=== PATIENT | female | born 1990 | race Hispanic/Latino ===

== ENCOUNTER 2018-01-08 23:26 | Inpatient (IN) | payer MEDICAID ==
[2018-01-08] MEDS: NOREPINEPHRINE BIT/0.9 % NACL 4 MG/250 ML BAG IV PRN (23:52)
[2018-01-08] MEDS ORDERED: NOREPINEPHRINE BIT/0.9 % NACL 4 MG/250 ML BAG IV ONE (23:52)
[2018-01-09 00:07] LABS: BASO # 0.08 K/mm3 (0.0-2.0); BASO % 0.2 % (0.0-3.0); EOS # 0.1 (0.0-0.7); EOS % 0.4 % (1.5-5.0); GRAN # 18.02 (1.4-6.5); GRAN % 49.9 % (50.0-68.0); HEMOGLOBIN 12.2 g/dL (12.0-16.0); LYMPH # 16.7 (1.2-3.4); LYMPH % 46.2 % (22.0-35.0); MEAN CELL VOLUME 91.9 fl (80.0-105.0); MEAN CORPUSCULAR HEMOGLOBIN 28.2 pg (25.0-35.0); MEAN CORPUSCULAR HGB CONC 30.7 g/dl (31.0-37.0); MEAN PLATELET VOLUME 10.7 fl (7.0-11.0); MONO # 1.2 (0.1-0.6); MONO % 3.3 % (1.0-6.0); RBC 4.33 10^6/uL (3.5-6.1); RED CELL DISTRIBUTION WIDTH 13.9 % (11.5-14.5)
[2018-01-09 00:13] LABS: WHITE BLOOD COUNT 36.1 10^3/ul (4.5-11.0)
[2018-01-09] MEDS ORDERED: Sodium Chloride 0.9% 2,000 ML IV SCH (00:15)
[2018-01-09 00:20] LABS: INR 0.97 (0.93-1.08); PROTHROMBIN TIME 11.1 SECONDS (9.4-12.5)
[2018-01-09 00:21] LABS: ARTERIAL BLOOD GAS O2 SAT 100.3 % (95-98); ARTERIAL BLOOD GAS PCO2 35 mm/Hg (35-45); ARTERIAL BLOOD GAS TCO2 9.9 mmol.L (22-28)
[2018-01-09 00:21] LABS: PARTIAL THROMBOPLASTIN TIME 65.7 Seconds (25.1-36.5)
[2018-01-09 00:22] LABS: ARTERIAL BLOOD GAS HCO3 8.8 mmol/L (21-28); ARTERIAL BLOOD GAS PH 7.01 (7.35-7.45)
--- NOTE | 2018-01-09 00:40 | CP.PCM.HP ---
<Kj Galvez - Last Filed: 01/09/18 06:33> History of Present Illness - History of Present Illness History of Present Illness: H&P Note - Carlos Galvez PGY2 HPI: Patient is a 28yo female with unknown past medical history that presented with report of cardiac arrest in the field. Per nursing, patient had been found in the back of a truck by EMS unresponsive. She was noted to be in asystole and ACLS protocol was initiated. She was intubated in the field, given a total of 3 doses of epinephrine and 2mg of narcan. ROSC was achieved and patient was urgently brought to [facility] for further evaluation. Patient reportedly had overdosed on heroin. 12point ROS limited due to patient status. PMH: unknown PSH: unknown Allergies: unobtainable Family Hx: unknown Social Hx: reportedly used heroin otherwise unknown Present on Admission - Present on Admission Any Indicators Present on Admission: No Past Patient History - Infectious Disease Hx of Infectious Diseases: None - Past Social History Smoking Status: Unknown If Ever Smoked - PSYCHIATRIC Hx Substance Use: Yes Meds Allergies/Adverse Reactions: Allergies Allergy/AdvReac Type Severity Reaction Status Date / Time Unobtainable Allergy Verified 01/08/18 23:36 Physical Exam - Constitutional Appears: In Acute Distress - Head Exam Head Exam: ATRAUMATIC, NORMOCEPHALIC - Respiratory Exam Respiratory Exam: Clear to Auscultation Bilateral. absent: Rales, Rhonchi, Wheezes - Cardiovascular Exam Cardiovascular Exam: Irregular Rhythm, +S1, +S2. absent: Gallop, Rubs - GI/Abdominal Exam GI & Abdominal Exam: Soft. absent: Distended, Firm, Rebound, Tenderness - Neurological Exam Additional comments: intubated, unresponsive on no sedation - Skin Skin Exam: Dry, Intact, Normal Color, Warm Results - Labs Result Diagrams: 01/09/18 02:45 01/09/18 02:45 Labs: Laboratory Results - last 24 hr 01/08/18 01/08/18 01/09/18 23:38 23:55 00:15 WBC 36.1 H* RBC 4.33 Hgb 12.2 Hct 39.8 MCV 91.9 MCH 28.2 MCHC 30.7 L RDW 13.9 Plt Count 274 MPV 10.7 Gran % 49.9 L Lymph % (Auto) 46.2 H [place] % (Auto) 3.3 Eos % (Auto) 0.4 L Baso % (Auto) 0.2 Gran # 18.02 H Lymph # (Auto) 16.7 H [place] # (Auto) 1.2 H Eos # (Auto) 0.1 Baso # (Auto) 0.08 PT 11.1 INR 0.97 APTT 65.7 H pCO2 35 pO2 490.0 H HCO3 8.8 L* ABG pH 7.01 L* ABG Total CO2 9.9 L ABG O2 Saturation 100.3 H ABG Base Excess -21.5 L ABG Potassium 6.1 H Sodium 137.0 Chloride 111.0 H Glucose 329 H Lactate 9.8 H* FiO2 100.0 Arterial Blood Potassium 6.1 H Assessment & Plan - Assessment and Plan (Free Text) Plan: 28yo female with unknown past medical history presents s/p cardiac arrest with ROSC achieved in the field reportedly post heroin overdose 1. Cardiac arrest -Hypothermia protocol initiated -IVF bolus for total of 3L -Started on 1/2NS with 75meq of bicarb @ 150cc/hr -Patient started on levophed with goal MAP > 65 -intubated on PRVC -ABG, EKG and CXR reviewed -Sepsis workup: blood, urine cultures pending, procalcitonin pending -Started on meropenem and vancomycin -Echocardiogram pending -Cardiology consulted - Dr. Foster -GI/DVT prophylaxis -CT Head pending -Neurochecks -Seizure precautions -HOB > 45 Patient seen and case discussed/reviewed with attending, Dr. Rhodes <Meagan ARECHIGA,Jose A - Last Filed: 01/09/18 07:39> Results - Vital Signs Recent Vital Signs: Last Vital Signs Temp 93.4 F L 01/09/18 01:10 Pulse 82 01/09/18 04:00 Resp 16 01/09/18 01:41 BP 97/55 L 01/09/18 04:00 Pulse Ox 97 01/09/18 05:02 - Labs Result Diagrams: 01/09/18 02:45 01/09/18 02:45 Labs: Laboratory Results - last 24 hr 01/09/18 01/09/18 01/09/18 00:15 00:15 00:15 WBC RBC Hgb Hct MCV MCH MCHC RDW Plt Count MPV Gran % Lymph % (Auto) [place] % (Auto) Eos % (Auto) Baso % (Auto) Gran # Lymph # (Auto) [place] # (Auto) Eos # (Auto) Baso # (Auto) pCO2 35 pO2 490.0 H HCO3 8.8 L* ABG pH 7.01 L* ABG Total CO2 9.9 L ABG O2 Saturation 100.3 H ABG Base Excess -21.5 L ABG Potassium 6.1 H VBG pH VBG pCO2 VBG HCO3 VBG Total CO2 VBG O2 Sat (Calc) VBG Base Excess VBG Potassium Sodium 137.0 Chloride 111.0 H Glucose 329 H Lactate 9.8 H* FiO2 100.0 Potassium Carbon Dioxide Anion Gap BUN Creatinine Est GFR ( Amer) Est GFR (Non-Af Amer) Random Glucose Calcium Total Bilirubin AST ALT Alkaline Phosphatase Troponin I Total Protein Albumin Globulin Albumin/Globulin Ratio Arterial Blood Potassium 6.1 H Venous Blood Potassium Urine Color Yellow Urine Appearance Clear Urine pH 6.0 Ur Specific [place] 1.020 Urine Protein Negative Urine Glucose (UA) Negative Urine Ketones Negative Urine Blood Trace-intact H Urine Nitrate Negative Urine Bilirubin Negative Urine Urobilinogen 0.2 Ur Leukocyte Esterase Negative Urine RBC 1 - 3 Urine WBC 0 - 2 Ur Epithelial Cells 1 - 3 Urine Bacteria Few Urine HCG, Qual Negative Urine Opiates Screen Positive H Urine Methadone Screen Negative Ur Barbiturates Screen Negative Ur Phencyclidine Scrn Negative Ur Amphetamines Screen Negative U Benzodiazepines Scrn Negative U Oth Cocaine Metabols Positive H U Cannabinoids Screen Positive H 01/09/18 01/09/18 01/09/18 02:45 02:45 02:45 WBC 17.4 H D RBC 5.00 Hgb 14.4 D Hct 43.5 MCV 87.0 D MCH 28.8 MCHC 33.1 RDW 13.9 Plt Count 280 MPV 10.2 Gran % 70.6 H Lymph % (Auto) 26.2 [place] % (Auto) 2.9 Eos % (Auto) 0.1 L Baso % (Auto) 0.2 Gran # 12.29 H Lymph # (Auto) 4.6 H [place] # (Auto) 0.5 Eos # (Auto) 0.0 Baso # (Auto) 0.03 pCO2 pO2 168 H HCO3 ABG pH ABG Total CO2 ABG O2 Saturation ABG Base Excess ABG Potassium VBG pH 7.16 L* VBG pCO2 43.0 VBG HCO3 15.3 L VBG Total CO2 16.6 L VBG O2 Sat (Calc) 100.3 H VBG Base Excess -13.0 L VBG Potassium 5.3 H Sodium 148 139.0 Chloride 116 H 110.0 H Glucose 82 Lactate 4.3 H* FiO2 21.0 Potassium 5.5 H Carbon Dioxide 16 L Anion Gap 22 H BUN 18 Creatinine 1.6 H Est GFR ( Amer) 46 Est GFR (Non-Af Amer) 38 Random Glucose 83 Calcium 7.3 L Total Bilirubin 0.4 AST 1923 H ALT 1419 H Alkaline Phosphatase 176 H D Troponin I 1.24 H* D Total Protein 7.1 Albumin 3.9 Globulin 3.2 Albumin/Globulin Ratio 1.2 Arterial Blood Potassium Venous Blood Potassium 5.3 H Urine Color Urine Appearance Urine pH Ur Specific [place] Urine Protein Urine Glucose (UA) Urine Ketones Urine Blood Urine Nitrate Urine Bilirubin Urine Urobilinogen Ur Leukocyte Esterase Urine RBC Urine WBC Ur Epithelial Cells Urine Bacteria Urine HCG, Qual Urine Opiates Screen Urine Methadone Screen Ur Barbiturates Screen Ur Phencyclidine Scrn Ur Amphetamines Screen U Benzodiazepines Scrn U Oth Cocaine Metabols U Cannabinoids Screen Attending/Attestation - Attestation I have personally seen and examined this patient.: Yes I have fully participated in the care of the patient.: Yes I have reviewed all pertinent clinical information: Yes Notes (Text): -I agree with the above H&P completed by the resident physician with the following additions and/or changes: -The patient is a 28 year old woman with unknown past medical history who was found at home to be unresponsive and in asystole by EMS. After ACLS protocol with chest compressions and Epi as well as Narcan, she regained pulses in the field. However, since ROSC, shes remained unresponsive and therefore was started on hypothermia protocol overnight. Its unclear how long she was down for. History is very limited as there are no family or friends with patient at this time. CT-head shows diffuse cerebral edema. Admission labs slowly returned through the night and were significant for the following: cocaine and opiate positive, WBC=36, K=6.1, and lactic acid=9.8. This morning she started having large volumes of foul-smelling diarrhea and therefore stool C. Diff antigen was ordered. As more labs have returned and given her profuse diarrhea, there was increasing concern for septic shock and therefore hypothermia protocol will be stopped. Empiric IV antibiotics, ID, neurology and cardiology consults have been placed. Procalcitonin, serial trops and EKGs ordered and Kaylexalate given. Right IJ TLC placement was attempted (twice) by me this morning (as patient is requiring Levophed drip) but was unsuccessful due to guidewire kinking. Therefore, I will have daytime diesel instructor place it later this morning. The patients prognosis is very poor. Impression: 1. Cardiac Arrest (s/p ROCS after ACLS protocol) 2. Cocaine and Opiate Overdose 3. Septic Shock (possibly due to C. Diff) 4. Diffuse Cerebral Edema (likely due to anoxic brain injury from cardiac arrest ) 5. Shock Liver 6. MARY 7. Hyperkalemia Critical Care Time Spent: 90-120 minutes 01/09/18 07:39
[2018-01-09 00:45] LABS: URINE BILIRUBIN NEGATIVE (NEGATIVE); URINE BLOOD TRACE-INTACT (NEGATIVE); URINE GLUCOSE (UA) NEGATIVE (NEGATIVE); URINE LEUKOCYTE ESTERASE NEGATIVE Leu/uL (NEGATIVE); URINE PROTEIN NEGATIVE mg/dL (<30 mg/dL); URINE UROBILINOGEN 0.2 E.U./dL (<1 E.U./dL)
[2018-01-09] MEDS ORDERED: Sodium Chloride 0.9% 1,000 ML IV SCH (00:45)
[2018-01-09] MEDS ORDERED: Meropenem 500 MG in Sodium Chloride 0.9% 50 ML IVPB SCH (00:45)
[2018-01-09 00:48] LABS: HCG,QUALITATIVE URINE NEGATIVE (NEGATIVE)
[2018-01-09] MEDS ORDERED: Vancomycin 1gm in NS 250ml 1 GM/250 ML BAG IVPB SCH ×2 (00:50→10:00)
[2018-01-09 00:51] LABS: URINE APPEARANCE CLEAR (CLEAR); URINE COLOR YELLOW (YELLOW)
[2018-01-09 00:57] LABS: TROPONIN I 0.05 ng/mL
[2018-01-09 01:05] LABS: ALB/GLOB RATIO 1.3 (1.1-1.8); ALBUMIN 3.6 g/dL (3.0-4.8); CALCIUM 8.6 mg/dL (8.4-10.5)
[2018-01-09 01:09] LABS: BARBITURATES, UR NEGATIVE (NEGATIVE); BENZODIAZEPINES, UR NEGATIVE (NEGATIVE); OPIATES, UR POSITIVE (NEGATIVE); PHENCYCLIDINE, UR NEGATIVE (NEGATIVE)
[2018-01-09 01:13] LABS: URINE WBC 0 - 2 /hpf (0-6)
[2018-01-09 01:14] LABS: URINE BACTERIA FEW (NEG)
[2018-01-09] MEDS ORDERED: Sod Polystyrene Sulf 15 gm/60 ml Susp PO ONE (01:16)
[2018-01-09] MEDS ORDERED: Insulin Lispro 1 UNITS/0.01 ML SC ONE (01:16)
--- NOTE | 2018-01-09 01:17 | CT ---
EXAM: CT Head Without Intravenous Contrast EXAM DATE/TIME: 01/08/2018 11:58 PM CLINICAL HISTORY: 28 years old, female; Signs and symptoms; Coma or unconsciousness; Additional info: Post cardiac arrest TECHNIQUE: Axial computed tomography images of the head/brain without intravenous contrast. All CT scans at this facility use one or more dose reduction techniques, viz.: automated exposure control; ma/kV adjustment per patient size (including targeted exams where dose is matched to indication; i.e. head); or iterative reconstruction technique. COMPARISON: No relevant prior studies available. FINDINGS: Endotracheal tube on bonding machine setter view. There is diffuse loss of colin-white matter differentiation. The brain parenchyma is overall decreased in attenuation. This combination of findings supports diffuse cerebral edema. The sulci are poorly visualized presumably secondary to effacement from edematous cerebral tissue. The ventricles and cisterns are patent although felt to be compressed. The tentorium and falx appear slightly hyperdense felt to be in contrast to the abnormally hypodense brain parenchyma. No intracranial hemorrhage. No significant fluid in the sinuses or mastoid air cells. IMPRESSION: Loss of colin-white matter differentiation with diffuse decreased attenuation of the brain parenchyma. Findings supportive of diffuse cerebral edema presumably secondary to the patient's reported cardiac arrest.
[2018-01-09] MEDS ORDERED: Insulin Regular 1 UNITS/0.01 ML ML IV ONE (01:47)
[2018-01-09 03:58] LABS: VENOUS BLOOD GAS PO2 168 mm/Hg (30-55)
[2018-01-09 04:02] LABS: VENOUS BLOOD PH 7.16 (7.32-7.43)
[2018-01-09 04:05] LABS: BASO # 0.03 K/mm3 (0.0-2.0); BASO % 0.2 % (0.0-3.0); EOS % 0.1 % (1.5-5.0); GRAN # 12.29 (1.4-6.5); GRAN % 70.6 % (50.0-68.0); HEMOGLOBIN 14.4 g/dL (12.0-16.0); LYMPH # 4.6 (1.2-3.4); LYMPH % 26.2 % (22.0-35.0); MEAN CORPUSCULAR HEMOGLOBIN 28.8 pg (25.0-35.0); MEAN CORPUSCULAR HGB CONC 33.1 g/dl (31.0-37.0); MEAN PLATELET VOLUME 10.2 fl (7.0-11.0); MONO # 0.5 (0.1-0.6); MONO % 2.9 % (1.0-6.0); RED CELL DISTRIBUTION WIDTH 13.9 % (11.5-14.5); WHITE BLOOD COUNT 17.4 10^3/ul (4.5-11.0)
[2018-01-09] MEDS ORDERED: Dextrose 50% SYRINGE Inj (50 ml) ONE ×2 (04:43→08:02)
[2018-01-09] MEDS ORDERED: Dextrose 50% SYRINGE Inj (50 ml) IVP ONE ×2 (04:45→08:02)
[2018-01-09 04:50] LABS: ALB/GLOB RATIO 1.2 (1.1-1.8); ALBUMIN 3.9 g/dL (3.0-4.8); CALCIUM 7.3 mg/dL (8.4-10.5); TROPONIN I 1.24 ng/mL
[2018-01-09 05:44] VITALS: BMI 23.9
[2018-01-09] MEDS ORDERED: Pneumococcal 23-Valent Vaccine IM ONE (05:44)
--- NOTE | 2018-01-09 05:46 | ED PDOC ---
Arrival/HPI - General Chief Complaint: Cardiac Arrest Time Seen by Provider: 01/08/18 23:33 Historian: Patient - Critical Care Critical Care Minutes: 60 minutes - History of Present Illness Narrative History of Present Illness (Text): 01/09/18 05:43 28 year old female, with no significant past medical history, presents to the ed brought in by ALS s/p cardiac rest. Patient was found unresponsive. Initial recorded cardiac rhythm was Asystole. ACLS protocol was started Epinephrin and Narcan were administered. ROSC upon arrival. Full HPI limited due to Patient's status. Time/Duration: Prior to Arrival Symptom Onset: Sudden Symptom Course: Unchanged Activities at Onset: Light Context: Home Past Medical History - Provider Review Nursing Documentation Reviewed: Yes - Infectious Disease Hx of Infectious Diseases: None - Cardiac Hx Cardiac Disorders: Yes (s/p cardiac arrest 01/08/18.) - Pulmonary Hx Respiratory Disorders: (Unknown) - Neurological Hx Neurological Disorder: (Unknown) - HEENT Hx HEENT Disorder: (Unknown) - Renal Hx Renal Disorder: (Unknown) - Endocrine/Metabolic Hx Endocrine Disorders: (Unknown) - Hematological/Oncological Hx Blood Disorders: (Unknown) - Integumentary Hx Dermatological Disorder: (Unknown) - Musculoskeletal/Rheumatological Hx Musculoskeletal Disorders: (Unknown) - Gastrointestinal Hx Gastrointestinal Disorders: (Unknown) - Genitourinary/Gynecological Hx Genitourinary Disorders: (Unknown) - Psychiatric Hx Psychophysiologic Disorder: Yes (s/p cardiac arrest; drug abuse (heroin). .) Hx Substance Use: Yes Family/Social History - Physician Review Nursing Documentation Reviewed: Yes Family/Social History: Unknown Family HX Smoking Status: Unknown If Ever Smoked Hx Alcohol Use: No Hx Substance Use: Yes Substance used: heroin Allergies/Home Meds Allergies/Adverse Reactions: Allergies Unobtainable Allergy (Verified 01/08/18 23:36) Home Medications: Home Meds Medication Instructions Recorded Confirmed Unobtainable 01/08/18 01/08/18 Review of Systems - Review of Systems Systems not reviewed;Unavailable: Acuity of Condition Physical Exam Vital Signs Reviewed: Yes Vital Signs Temp Pulse Resp BP Pulse Ox 01/09/18 00:03 56 L 18 95/42 L 100 01/08/18 23:53 97.1 F L 58 L 29 H 88/34 L 96 Temperature: Hypothermic Blood Pressure: Hypotensive Pulse: Irregular Respiratory Rate: Tachypneic Appearance: Positive for: Well-Appearing, Non-Toxic, Comfortable Pain Distress: None Mental Status: Positive for: Alert and Oriented X 3 Finger Stick Blood Glucose: 41 - Systems Exam Head: Present: Atraumatic, Normocephalic Pupils: Present: PERRL Extroacular Muscles: Present: EOMI Conjunctiva: Present: Normal Mouth: Present: Moist Mucous Membranes Neck: Present: Normal Range of Motion Respiratory/Chest: Present: Other (Mechanical Ventilation). No: Respiratory Distress, Accessory Muscle Use Cardiovascular: Present: Normal S1, S2, Irregular Rhythm. No: Murmurs Abdomen: No: Tenderness, Distention, Peritoneal Signs Back: Present: Normal Inspection Upper Extremity: Present: Normal Inspection. No: Cyanosis, Edema Lower Extremity: Present: Normal Inspection. No: Edema Neurological: Present: GCS=15, CN II-XII Intact, Speech Normal Skin: Present: Warm, Dry, Normal Color. No: Rashes Psychiatric: Present: Alert, Oriented x 3, Normal Insight, Normal Concentration Medical Decision Making ED Course and Treatment: 01/09/18 05:48 Impression: 28 year old female brought in by ALS s/p cardiac arrest Plan: -- Arterial Blood Gas -- EKG -- Labs -- Phosphorous -- Magnesium -- Echo -- CXR -- Blood Culture -- Urine Culture -- Ventilator -- Sodium Chloride -- Dextrose -- Insulin -- Norepinephrin -- Vancomycin Progress Notes: EKG reviewed, shows irregular rate at 67 bpm. - Critical Care Critical Care Minutes: 60 minutes - Lab Interpretations Lab Results: 01/08/18 23:38 01/08/18 23:55 Lab Results 01/08/18 23:55: Alcohol, Quantitative < 10 01/08/18 23:55: Sodium 143, Potassium 6.1 H*, Chloride 105, Carbon Dioxide 13 L , Anion Gap 31 H, BUN 14, Creatinine 1.4 H, Est GFR ( Amer) 54, Est GFR ( Non-Af Amer) 44, Random Glucose 389 H*, Calcium 8.6, Magnesium 2.7 H, Total Bilirubin 0.2, AST 959 H, ALT 740 H, Alkaline Phosphatase 103, Lactate Dehydrogenase 4252 H, Total Creatine Kinase 74, Troponin I 0.05, Total Protein 6.5, Albumin 3.6, Globulin 2.9, Albumin/Globulin Ratio 1.3 01/08/18 23:55: PT 11.1, INR 0.97, APTT 65.7 H 01/08/18 23:38: WBC 36.1 H*, RBC 4.33, Hgb 12.2, Hct 39.8, MCV 91.9, MCH 28.2, MCHC 30.7 L, RDW 13.9, Plt Count 274, MPV 10.7, Gran % 49.9 L, Lymph % (Auto) 46.2 H, [place] % (Auto) 3.3, Eos % (Auto) 0.4 L, Baso % (Auto) 0.2, Gran # 18.02 H , Lymph # (Auto) 16.7 H, [place] # (Auto) 1.2 H, Eos # (Auto) 0.1, Baso # (Auto) 0.08 - RAD Interpretation Radiology Orders: 01/08/18 23:39 CHEST PORTABLE [RAD] Stat 01/08/18 23:58 HEAD W/O CONTRAST [CT] Stat - Medication Orders Current Medication Orders: NOREPINEPHRINE BIT/0.9 % NACL (Levophed 4 Mg/ 250 Ml Ns Premixed) 4 mg in 250 mls @ 15 mls/hr IV .[id number] PRN; Protocol; 4 MCG/MIN PRN Reason: TITRATE PER MD ORDER Last Titration: 01/09/18 05:30 Dose: 16 mcg/min, 60 mls/hr Titration Intervention Document 01/09/18 05:30 QES (Rec: 01/09/18 05:47 QES [id number]) Titration Intake Titration Intake 50 Cumulative Intake 174 Cumulative Intake (Rx) 174 Waste Amount 0 Container Volume 34 Titration Dosing Titration Dose 16 IV Rate 60 Intake/Decrease Increased Cumulative Dose 3.024 Sodium Chloride (Sodium Chloride 0.9%) 2,000 mls @ 999 mls/hr IV .Q2H1M SASCHA Last Admin: 01/09/18 00:14 Dose: 999 mls/hr eMAR Start Stop Document 01/09/18 00:14 LA (Rec: 01/09/18 00:15 LA [id number]) Intravenous Solution Start Date 01/09/18 Start Time 00:14 Sodium Chloride (Sodium Chloride 0.9%) 1,000 mls @ 999 mls/hr IV .Q1H1M SASCHA Vancomycin HCl (Vancomycin 1gm) 1 gm in 250 mls @ 167 mls/hr IVPB DAILY SASCHA PRN Reason: Protocol Sodium Bicarbonate 75 meq/ (Sodium Chloride) 1,075 mls @ 150 mls/hr IV .Q7H10M SASCHA Last Admin: 01/09/18 01:57 Dose: 150 mls/hr eMAR Start Stop Document 01/09/18 01:57 QES (Rec: 01/09/18 01:58 QES [id number]) Intravenous Solution Start Date 01/09/18 Start Time 01:57 Pantoprazole Sodium (Protonix Inj) 40 mg IVP DAILY SASCHA Discontinued Medications Dextrose (Dextrose 50% Inj) 50 ml IVP ONCE ONE Stop: 01/09/18 04:46 Last Admin: 01/09/18 04:47 Dose: 50 ml IVP Administration Document 01/09/18 04:47 QES (Rec: 01/09/18 04:54 QES [id number]) Charges for Administration # of IVP Administrations 1 Meropenem 500 mg/ Sodium (Chloride) 50 mls @ 100 mls/hr IVPB Q24H SASCHA PRN Reason: Protocol Stop: 01/09/18 01:14 Last Admin: 01/09/18 03:32 Dose: 100 mls/hr eMAR Start Stop Document 01/09/18 03:32 QES (Rec: 01/09/18 03:32 QES [id number]) Intravenous Solution Start Date 01/09/18 Start Time 03:32 End Date 01/09/18 End time 04:02 Total Infusion Time 30 Vancomycin HCl (Vancomycin 1gm) 1 gm in 250 mls @ 167 mls/hr IVPB DAILY SASCHA PRN Reason: Protocol Insulin Human Regular (Humulin R) 10 units IV ONCE ONE Stop: 01/09/18 01:48 Last Admin: 01/09/18 01:57 Dose: 10 units Comments: Glucose from chemistry is 389. eMAR Start Stop Document 01/09/18 01:57 QES (Rec: 01/09/18 01:57 QES [id number]) Intravenous Solution Start Date 01/09/18 Start Time 01:57 End Date 01/09/18 End time 01:58 Total Infusion Time 1 Pneumococcal Polyvalent Vaccine (Pneumovax 23 Vaccine) 0.5 ml IM .ONCE ONE Stop: 01/09/18 05:45 Sodium Polystyrene Sulfonate (Kayexalate Susp) 30 gm PO ONCE ONE Stop: 01/09/18 01:17 Last Admin: 01/09/18 01:52 Dose: 30 gm - Scribe Statement The provider has reviewed the documentation as recorded by the Terranceibbrett Rivas All medical record entries made by the Maxine were at my direction and personally dictated by me. I have reviewed the chart and agree that the record accurately reflects my personal performance of the history, physical exam, medical decision making, and the department course for this patient. I have also personally directed, reviewed, and agree with the discharge instructions and disposition. Disposition/Present on Arrival - Present on Arrival Any Indicators Present on Arrival: No History of DVT/PE: No History of Uncontrolled Diabetes: No Urinary Catheter: No History of Decub. Ulcer: No History Surgical Site Infection Following: None - Disposition Have Diagnosis and Disposition been Completed?: Yes Diagnosis: Cardiac arrest, Drug abuse Disposition: HOSPITALIZED Disposition Time: 23:40 Condition: CRITICAL
[2018-01-09] MEDS ORDERED: Sodium Chloride 0.9% 1,000 ML IV STA (06:50)
[2018-01-09 08:11] LABS: ACETAMINOPHEN < 10.0 ug/ml (10.0-20.0); SALICYLATE < 1 mg/dL (2.0-20.0)
[2018-01-09 08:17] LABS: B-TYPE NATRIURETIC PEPTIDE 97.3 pg/mL (0-450)
[2018-01-09] MEDS ORDERED: WATER IV ONE ×3 (08:30→14:30)
[2018-01-09] MEDS ORDERED: DEXTROSE 5% IV ONE ×3 (08:30→14:30)
[2018-01-09] MEDS ORDERED: ACETYLCYSTEINE IV ONE ×3 (08:30→14:30)
[2018-01-09] MEDS: Vasopressin 20 UNITS in Dextrose 5% In Water 100 ML IV SCH ×3 (08:53→19:09)
[2018-01-09] MEDS: NOREPINEPHRINE BIT/0.9 % NACL 4 MG/250 ML BAG IV PRN (09:10)
--- NOTE | 2018-01-09 09:29 | PCM.PROC ---
<Michael Vaughan - Last Filed: 01/09/18 09:26> Procedures Attestation:: I certify that I have explained the specified Operation(s) or Procedure(s), risks, benefits and reasonable alternatives to the Patient and/or other person responsible. The opportunity was given to ask questions and all questions answered - Central Line Placement Right Femoral Triple Lumen Catheter Aseptic technique was employed throughout the procedure: Hand Hygiene done prior to procedure, Full sterile barriers (mask, hair cover, sterile gown, sterile gloves), Full body sterile drape, Chloraprep Antiseptic: 2 minute prep for Femoral CVP Time Out Performed: Yes Pt. Placed on Pulse Ox Monitor: Yes Central Line Prep: Chlorhexidine-Alcohol Combination Local Anesthesia Used: Lidocaine 1% Amount of Anesthesia Used (mls): 3 Ultrasound Used for Placement: Yes Central Line Lumen Inserted: triple Central Line Length: 20 cm Post Procedure: Sutured in Place, Good Blood Return, All Ports Aspirated, Flushed, Capped, Sterile Dressing Applied Secured by: Suture Post procedure dressing: Clear vapor permeable, Chlorhexidine disc (Biopatch) Post Procedure X-Ray: No Patient Tolerated Procedure: Well, No Complications Immediate Complications: None Additional Comments: Ultrasound-guided TLC catheter placed in right femoral vein under the supervision of attending, Dr. Brendan MD. <Eduardo Cardona - Last Filed: 01/09/18 14:28> Attending/Attestation - Attestation I have personally seen and examined this patient.: Yes I have fully participated in the care of the patient.: Yes I have reviewed all pertinent clinical information, including history, physical exam and plan: Yes Notes (Text): 01/09/18 14:26 Emergent procedure-->need for multiple vasoactive meds and IV access. Maximum barrier precautions used, operational area sterilzed and TO performed. real time US guidance+, guidewire removed, sterile dressings applied, hemostasis acheived.
[2018-01-09] MEDS: Cefepime 1gm in NS 100ml 1 GM/100 ML BAG IVPB SCH ×2 (09:36→15:47)
--- NOTE | 2018-01-09 10:08 | RAD ---
HISTORY: post intubation COMPARISON: No prior. FINDINGS: LUNGS: No active pulmonary disease. PLEURA: No significant pleural effusion identified, no pneumothorax apparent. CARDIOVASCULAR: No radiographic findings to suggest acute or significant cardiovascular disease. OSSEOUS STRUCTURES: No significant abnormalities. VISUALIZED UPPER ABDOMEN: Markedly distended stomach. No visible free air OTHER FINDINGS: Satisfactory position of endotracheal tube 4 cm above the dominguez. IMPRESSION: No active disease. Recently placed endotracheal tube is in satisfactory position.
[2018-01-09] MEDS ORDERED: Pantoprazole 40mg/100mL NS 40 MG/100 ML BAG IVPB SCH (10:15)
[2018-01-09] MEDS: Sodium Bicarbonate 8.4% 150 MEQ in Dextrose 5% In Water 1,000 ML IV SCH ×2 (10:34→17:48)
--- NOTE | 2018-01-09 10:42 | RAD ---
HISTORY: s/p cardiac arrest COMPARISON: January 08, 2018. FINDINGS: LUNGS: No active pulmonary disease. PLEURA: No significant pleural effusion identified, no pneumothorax apparent. CARDIOVASCULAR: No radiographic findings to suggest acute or significant cardiovascular disease. OSSEOUS STRUCTURES: No significant abnormalities. VISUALIZED UPPER ABDOMEN: Normal. OTHER FINDINGS: Stable position of endotracheal tube. Recently placed nasogastric tube identified in the stomach which is decompressed compared to the prior study. IMPRESSION: Active pulmonary disease. Satisfactory position of support apparatus.
--- NOTE | 2018-01-09 11:44 | CP.CCUPN ---
<AlexusMichael - Last Filed: 01/09/18 11:41> CCU Subjective - Physician Review Subjective (Free Text): ICU Progress Note Pt seen and examined at bedside. Patient remains intubated on pressors. Detailed ROS unobtainable due to current mental status. CCU Objective - Vital Signs / Intake & Output Vital Signs (Last 4 hours): Vital Signs Temp Pulse BP Pulse Ox 01/09/18 09:35 92.5 F L 97 H 83/52 L 97 01/09/18 09:30 92.5 F L 97 H 91/49 L 97 01/09/18 09:25 92.5 F L 100 H 81/49 L 97 01/09/18 09:20 92.5 F L 101 H 80/47 L 97 01/09/18 09:17 92.5 F L 101 H 87/50 L 97 01/09/18 09:15 92.5 F L 102 H 80/47 L 97 01/09/18 09:10 92.5 F L 101 H 73/41 L 96 01/09/18 09:05 92.3 F L 97 H 80/46 L 97 01/09/18 09:00 92.5 F L 98 H 88/50 L 97 01/09/18 08:55 92.5 F L 99 H 93/49 L 97 01/09/18 08:53 91/49 L 01/09/18 08:50 92.5 F L 99 H 91/49 L 97 01/09/18 08:45 92.5 F L 99 H 93/49 L 98 01/09/18 08:40 92.7 F L 100 H 96/50 L 97 01/09/18 08:35 92.7 F L 100 H 98/51 L 97 01/09/18 08:30 92.7 F L 102 H 100/53 L 97 01/09/18 08:25 92.8 F L 103 H 98/53 L 97 01/09/18 08:20 92.8 F L 105 H 98/49 L 97 01/09/18 08:15 93.0 F L 106 H 94/46 L 97 01/09/18 08:10 93.0 F L 107 H 93/46 L 97 01/09/18 08:05 93.0 F L 105 H 83/39 L 96 01/09/18 08:00 93.0 F L 105 H 82/45 L 95 01/09/18 07:55 93.0 F L 105 H 78/50 L 95 01/09/18 07:50 93.0 F L 105 H 88/50 L 96 01/09/18 07:45 93.0 F L 106 H 84/49 L 96 Intake and Output (Last 8hrs): Intake & Output 01/08/18 01/09/18 01/09/18 22:59 06:59 14:59 Intake Total 3898 Output Total 145 Balance 3753 Weight 63.231 kg Intake: IV 898 Left Antecubital 0 Left Hand 675 Oral 0 Tube Feeding 0 TPN/PPN 0 Blood Product 0 Lipid 0 Albumin 0 Other 3000 Output: Urine 145 Urethral (Mccall) 125 Stool 0 Urine/Stool Mix 0 Emesis 0 Oral Regurgitation 0 Other 0 Other: Voiding Method Indwelling Catheter # Voids Urethral (Mccall) 0 # Bowel Movements 2 - Physical Exam Physical Exam Limitations: Positive for: Altered Mental Status Head: Positive for: Atraumatic, Normocephalic Pupils: Positive for: Sluggish Conjunctiva: Positive for: Normal Mouth: Positive for: Moist Mucous Membranes, Other (ETT and OGT in place dark blood per OG tube) Neck: Positive for: Normal Range of Motion Respiratory/Chest: Positive for: Other (Mechanical Ventilation). Negative for: Respiratory Distress, Accessory Muscle Use Cardiovascular: Positive for: Normal S1, S2, Tachycardic. Negative for: Murmurs , Irregular Rhythm Abdomen: Negative for: Tenderness, Distention, Peritoneal Signs Back: Positive for: Normal Inspection Upper Extremity: Positive for: Normal Inspection. Negative for: Cyanosis, Edema Lower Extremity: Positive for: Normal Inspection. Negative for: Edema Skin: Positive for: Warm, Dry, Normal Color. Negative for: Rashes - Medications Active Medications: Active Medications Generic Name Dose Route Start Last Admin Trade Name Freq PRN Reason Stop Dose Admin Hydrocortisone Sodium Succinate 50 mg 01/09/18 07:45 01/09/18 09:21 Solu-Cortef IVP 50 mg Q6H SASCHA Administration NOREPINEPHRINE BIT/0.9 % NACL 4 mg in 250 mls @ 15 mls/hr 01/08/18 23:42 09:10 Levophed 4 Mg/ 250 Ml Ns Premixed IV 20 mcg/min .[id number] PRN 75 mls/hr TITRATE PER MD ORDER Administration Protocol 4 MCG/MIN Vancomycin HCl 1 gm in 250 mls @ 167 mls/hr 01/09/18 00:50 01/09/18 09:37 Vancomycin 1gm IVPB 167 mls/hr DAILY SASCHA Administration Protocol Sodium Bicarbonate 150 meq/ 1,150 mls @ 150 mls/hr 01/09/18 07:45 01/09/18 10 :34 Dextrose IV 150 mls/hr .[id number] SASCHA Administration Cefepime HCl 1 gm in 100 mls @ 100 mls/hr 01/09/18 07:45 01/09/18 09:36 Maxipime 1gm IVPB 100 mls/hr Q8H SASCHA Administration Protocol Vasopressin 20 units/ Dextrose 101 mls @ 9.09 mls/hr 01/09/18 08:00 01/09/18 08:53 IV 9.09 mls/hr .[id number] SASCHA Administration Protocol 0.03 U/MIN Acetylcysteine 3,162 mg/ 515.81 mls @ 125 mls/hr 01/09/18 10:00 01/09/18 10: 25 Dextrose IV 01/09/18 14:07 125 mls/hr .Q4H8M ONE Administration Protocol Acetylcysteine 6,323 mg/ 1,031.615 mls @ 62.5 mls/hr 01/09/18 14:30 Dextrose IV 01/10/18 07:00 .[id number] ONE Protocol Pantoprazole Sodium 40 mg in 100 mls @ 20 mls/hr 01/09/18 10:15 Protonix 40mg Ivpb IVPB .Q5H SASCHA Levetiracetam 1,000 mg/ Sodium 110 mls @ 460 mls/hr 01/09/18 11:45 Chloride IV Q12 SASCHA Sodium Chloride 500 mls @ 30 mls/hr 01/09/18 11:45 Hypertonic Saline 3% IV .[id number] SASCHA - Patient Studies Lab Studies: Lab Studies 01/09/18 01/09/18 01/09/18 Range/Units 08:00 07:00 06:06 WBC (4.5-11.0) 10^3/ul RBC (3.5-6.1) 10^6/uL Hgb (12.0-16.0) g/dL Hct (36.0-48.0) % MCV (80.0-105.0) fl MCH (25.0-35.0) pg MCHC (31.0-37.0) g/dl RDW (11.5-14.5) % Plt Count (120.0-450.0) 10^3/uL MPV (7.0-11.0) fl Gran % (50.0-68.0) % Lymph % (Auto) (22.0-35.0) % [place] % (Auto) (1.0-6.0) % Eos % (Auto) (1.5-5.0) % Baso % (Auto) (0.0-3.0) % Gran # (1.4-6.5) Lymph # (Auto) (1.2-3.4) [place] # (Auto) (0.1-0.6) Eos # (Auto) (0.0-0.7) Baso # (Auto) (0.0-2.0) K/mm3 pCO2 (35-45) mm/Hg pO2 (80-100) mm/Hg HCO3 (21-28) mmol/L ABG pH (7.35-7.45) ABG Total CO2 (22-28) mmol.L ABG O2 Saturation (95-98) % ABG Base Excess (-2.0-3.0) mmol/L ABG Potassium (3.6-5.2) mmol/L VBG pH (7.32-7.43) VBG pCO2 (40-60) VBG HCO3 (21-28) mmol/l VBG Total CO2 (22-28) mmol.L VBG O2 Sat (Calc) (40-65) % VBG Base Excess (0.0-2.0) mmol/L VBG Potassium (3.6-5.2) mmol/L Sodium (132-148) mmol/L Chloride (98-107) mmol/L Glucose (65-105) mg/dl Lactate (0.7-2.1) mmol/L FiO2 % Potassium (3.6-5.0) mmol/L Carbon Dioxide (21-33) mmol/L Anion Gap (10-20) BUN (7-21) mg/dL Creatinine (0.7-1.2) mg/dl Est GFR ( Amer) Est GFR (Non-Af Amer) POC Glucose (mg/dL) 50 L 80 (65-110) mg/dL Random Glucose (70-110) mg/dL Calcium (8.4-10.5) mg/dL Phosphorus (2.5-4.5) mg/dL Total Bilirubin (0.2-1.3) mg/dL AST (14-36) U/L ALT (7-56) U/L Alkaline Phosphatase (38-126) U/L Total Creatine Kinase (35-230) U/L Troponin I ng/mL NT-Pro-B Natriuret Pep (0-450) pg/mL Total Protein (5.8-8.3) g/dL Albumin (3.0-4.8) g/dL Globulin gm/dL Albumin/Globulin Ratio (1.1-1.8) Arterial Blood Potassium (3.6-5.2) mmol/L Venous Blood Potassium (3.6-5.2) mmol/L Urine Color (YELLOW) Urine Appearance (CLEAR) Urine pH (4.7-8.0) Ur Specific [place] (1.005-1.035) Urine Protein (<30 mg/dL) mg/dL Urine Glucose (UA) (NEGATIVE) mg/dL Urine Ketones (NEGATIVE) mg/dL Urine Blood (NEGATIVE) Urine Nitrate (NEGATIVE) Urine Bilirubin (NEGATIVE) Urine Urobilinogen (<1 E.U./dL) E.U./dL Ur Leukocyte Esterase (NEGATIVE) [place]/uL Urine RBC (0-2) /hpf Urine WBC (0-6) /hpf Ur Epithelial Cells (0-5) /hpf Urine Bacteria (NEG) Urine HCG, Qual (NEGATIVE) Salicylates < 1 L (2.0-20.0) mg/dL Urine Opiates Screen (NEGATIVE) Urine Methadone Screen (NEGATIVE) Acetaminophen < 10.0 L (10.0-20.0) ug/ml Ur Barbiturates Screen (NEGATIVE) Ur Phencyclidine Scrn (NEGATIVE) Ur Amphetamines Screen (NEGATIVE) U Benzodiazepines Scrn (NEGATIVE) U Oth Cocaine Metabols (NEGATIVE) U Cannabinoids Screen (NEGATIVE) 01/09/18 01/09/18 01/09/18 Range/Units 04:40 02:45 02:45 WBC 17.4 H D (4.5-11.0) 10^3/ul RBC 5.00 (3.5-6.1) 10^6/uL Hgb 14.4 D (12.0-16.0) g/dL Hct 43.5 (36.0-48.0) % MCV 87.0 D (80.0-105.0) fl MCH 28.8 (25.0-35.0) pg MCHC 33.1 (31.0-37.0) g/dl RDW 13.9 (11.5-14.5) % Plt Count 280 (120.0-450.0) 10^3/uL MPV 10.2 (7.0-11.0) fl Gran % 70.6 H (50.0-68.0) % Lymph % (Auto) 26.2 (22.0-35.0) % [place] % (Auto) 2.9 (1.0-6.0) % Eos % (Auto) 0.1 L (1.5-5.0) % Baso % (Auto) 0.2 (0.0-3.0) % Gran # 12.29 H (1.4-6.5) Lymph # (Auto) 4.6 H (1.2-3.4) [place] # (Auto) 0.5 (0.1-0.6) Eos # (Auto) 0.0 (0.0-0.7) Baso # (Auto) 0.03 (0.0-2.0) K/mm3 pCO2 (35-45) mm/Hg pO2 168 H (80-100) mm/Hg HCO3 (21-28) mmol/L ABG pH (7.35-7.45) ABG Total CO2 (22-28) mmol.L ABG O2 Saturation (95-98) % ABG Base Excess (-2.0-3.0) mmol/L ABG Potassium (3.6-5.2) mmol/L VBG pH 7.16 L* (7.32-7.43) VBG pCO2 43.0 (40-60) VBG HCO3 15.3 L (21-28) mmol/l VBG Total CO2 16.6 L (22-28) mmol.L VBG O2 Sat (Calc) 100.3 H (40-65) % VBG Base Excess -13.0 L (0.0-2.0) mmol/L VBG Potassium 5.3 H (3.6-5.2) mmol/L Sodium 139.0 (132-148) mmol/L Chloride 110.0 H (98-107) mmol/L Glucose 82 (65-105) mg/dl Lactate 4.3 H* (0.7-2.1) mmol/L FiO2 21.0 % Potassium (3.6-5.0) mmol/L Carbon Dioxide (21-33) mmol/L Anion Gap (10-20) BUN (7-21) mg/dL Creatinine (0.7-1.2) mg/dl Est GFR ( Amer) Est GFR (Non-Af Amer) POC Glucose (mg/dL) 41 L (65-110) mg/dL Random Glucose (70-110) mg/dL Calcium (8.4-10.5) mg/dL Phosphorus (2.5-4.5) mg/dL Total Bilirubin (0.2-1.3) mg/dL AST (14-36) U/L ALT (7-56) U/L Alkaline Phosphatase (38-126) U/L Total Creatine Kinase (35-230) U/L Troponin I ng/mL NT-Pro-B Natriuret Pep (0-450) pg/mL Total Protein (5.8-8.3) g/dL Albumin (3.0-4.8) g/dL Globulin gm/dL Albumin/Globulin Ratio (1.1-1.8) Arterial Blood Potassium (3.6-5.2) mmol/L Venous Blood Potassium 5.3 H (3.6-5.2) mmol/L Urine Color (YELLOW) Urine Appearance (CLEAR) Urine pH (4.7-8.0) Ur Specific [place] (1.005-1.035) Urine Protein (<30 mg/dL) mg/dL Urine Glucose (UA) (NEGATIVE) mg/dL Urine Ketones (NEGATIVE) mg/dL Urine Blood (NEGATIVE) Urine Nitrate (NEGATIVE) Urine Bilirubin (NEGATIVE) Urine Urobilinogen (<1 E.U./dL) E.U./dL Ur Leukocyte Esterase (NEGATIVE) [place]/uL Urine RBC (0-2) /hpf Urine WBC (0-6) /hpf Ur Epithelial Cells (0-5) /hpf Urine Bacteria (NEG) Urine HCG, Qual (NEGATIVE) Salicylates (2.0-20.0) mg/dL Urine Opiates Screen (NEGATIVE) Urine Methadone Screen (NEGATIVE) Acetaminophen (10.0-20.0) ug/ml Ur Barbiturates Screen (NEGATIVE) Ur Phencyclidine Scrn (NEGATIVE) Ur Amphetamines Screen (NEGATIVE) U Benzodiazepines Scrn (NEGATIVE) U Oth Cocaine Metabols (NEGATIVE) U Cannabinoids Screen (NEGATIVE) 01/09/18 01/09/18 01/09/18 Range/Units 02:45 00:15 00:15 WBC (4.5-11.0) 10^3/ul RBC (3.5-6.1) 10^6/uL Hgb (12.0-16.0) g/dL Hct (36.0-48.0) % MCV (80.0-105.0) fl MCH (25.0-35.0) pg MCHC (31.0-37.0) g/dl RDW (11.5-14.5) % Plt Count (120.0-450.0) 10^3/uL MPV (7.0-11.0) fl Gran % (50.0-68.0) % Lymph % (Auto) (22.0-35.0) % [place] % (Auto) (1.0-6.0) % Eos % (Auto) (1.5-5.0) % Baso % (Auto) (0.0-3.0) % Gran # (1.4-6.5) Lymph # (Auto) (1.2-3.4) [place] # (Auto) (0.1-0.6) Eos # (Auto) (0.0-0.7) Baso # (Auto) (0.0-2.0) K/mm3 pCO2 35 (35-45) mm/Hg pO2 490.0 H (80-100) mm/Hg HCO3 8.8 L* (21-28) mmol/L ABG pH 7.01 L* (7.35-7.45) ABG Total CO2 9.9 L (22-28) mmol.L ABG O2 Saturation 100.3 H (95-98) % ABG Base Excess -21.5 L (-2.0-3.0) mmol/L ABG Potassium 6.1 H (3.6-5.2) mmol/L VBG pH (7.32-7.43) VBG pCO2 (40-60) VBG HCO3 (21-28) mmol/l VBG Total CO2 (22-28) mmol.L VBG O2 Sat (Calc) (40-65) % VBG Base Excess (0.0-2.0) mmol/L VBG Potassium (3.6-5.2) mmol/L Sodium 148 137.0 (132-148) mmol/L Chloride 116 H 111.0 H (98-107) mmol/L Glucose 329 H (65-105) mg/dl Lactate 9.8 H* (0.7-2.1) mmol/L FiO2 100.0 % Potassium 5.5 H (3.6-5.0) mmol/L Carbon Dioxide 16 L (21-33) mmol/L Anion Gap 22 H (10-20) BUN 18 (7-21) mg/dL Creatinine 1.6 H (0.7-1.2) mg/dl Est GFR ( Amer) 46 Est GFR (Non-Af Amer) 38 POC Glucose (mg/dL) (65-110) mg/dL Random Glucose 83 (70-110) mg/dL Calcium 7.3 L (8.4-10.5) mg/dL Phosphorus (2.5-4.5) mg/dL Total Bilirubin 0.4 (0.2-1.3) mg/dL AST 1923 H (14-36) U/L ALT 1419 H (7-56) U/L Alkaline Phosphatase 176 H D (38-126) U/L Total Creatine Kinase (35-230) U/L Troponin I 1.24 H* D ng/mL NT-Pro-B Natriuret Pep (0-450) pg/mL Total Protein 7.1 (5.8-8.3) g/dL Albumin 3.9 (3.0-4.8) g/dL Globulin 3.2 gm/dL Albumin/Globulin Ratio 1.2 (1.1-1.8) Arterial Blood Potassium 6.1 H (3.6-5.2) mmol/L Venous Blood Potassium (3.6-5.2) mmol/L Urine Color Yellow (YELLOW) Urine Appearance Clear (CLEAR) Urine pH 6.0 (4.7-8.0) Ur Specific [place] 1.020 (1.005-1.035) Urine Protein Negative (<30 mg/dL) mg/dL Urine Glucose (UA) Negative (NEGATIVE) mg/dL Urine Ketones Negative (NEGATIVE) mg/dL Urine Blood Trace-intact H (NEGATIVE) Urine Nitrate Negative (NEGATIVE) Urine Bilirubin Negative (NEGATIVE) Urine Urobilinogen 0.2 (<1 E.U./dL) E.U./dL Ur Leukocyte Esterase Negative (NEGATIVE) [place]/uL Urine RBC 1 - 3 (0-2) /hpf Urine WBC 0 - 2 (0-6) /hpf Ur Epithelial Cells 1 - 3 (0-5) /hpf Urine Bacteria Few (NEG) Urine HCG, Qual Negative (NEGATIVE) Salicylates (2.0-20.0) mg/dL Urine Opiates Screen (NEGATIVE) Urine Methadone Screen (NEGATIVE) Acetaminophen (10.0-20.0) ug/ml Ur Barbiturates Screen (NEGATIVE) Ur Phencyclidine Scrn (NEGATIVE) Ur Amphetamines Screen (NEGATIVE) U Benzodiazepines Scrn (NEGATIVE) U Oth Cocaine Metabols (NEGATIVE) U Cannabinoids Screen (NEGATIVE) 01/09/18 01/09/18 Range/Units 00:15 00:00 WBC (4.5-11.0) 10^3/ul RBC (3.5-6.1) 10^6/uL Hgb (12.0-16.0) g/dL Hct (36.0-48.0) % MCV (80.0-105.0) fl MCH (25.0-35.0) pg MCHC (31.0-37.0) g/dl RDW (11.5-14.5) % Plt Count (120.0-450.0) 10^3/uL MPV (7.0-11.0) fl Gran % (50.0-68.0) % Lymph % (Auto) (22.0-35.0) % [place] % (Auto) (1.0-6.0) % Eos % (Auto) (1.5-5.0) % Baso % (Auto) (0.0-3.0) % Gran # (1.4-6.5) Lymph # (Auto) (1.2-3.4) [place] # (Auto) (0.1-0.6) Eos # (Auto) (0.0-0.7) Baso # (Auto) (0.0-2.0) K/mm3 pCO2 (35-45) mm/Hg pO2 (80-100) mm/Hg HCO3 (21-28) mmol/L ABG pH (7.35-7.45) ABG Total CO2 (22-28) mmol.L ABG O2 Saturation (95-98) % ABG Base Excess (-2.0-3.0) mmol/L ABG Potassium (3.6-5.2) mmol/L VBG pH (7.32-7.43) VBG pCO2 (40-60) VBG HCO3 (21-28) mmol/l VBG Total CO2 (22-28) mmol.L VBG O2 Sat (Calc) (40-65) % VBG Base Excess (0.0-2.0) mmol/L VBG Potassium (3.6-5.2) mmol/L Sodium (132-148) mmol/L Chloride (98-107) mmol/L Glucose (65-105) mg/dl Lactate (0.7-2.1) mmol/L FiO2 % Potassium (3.6-5.0) mmol/L Carbon Dioxide (21-33) mmol/L Anion Gap (10-20) BUN (7-21) mg/dL Creatinine (0.7-1.2) mg/dl Est GFR ( Amer) Est GFR (Non-Af Amer) POC Glucose (mg/dL) (65-110) mg/dL Random Glucose (70-110) mg/dL Calcium (8.4-10.5) mg/dL Phosphorus 14.5 H (2.5-4.5) mg/dL Total Bilirubin (0.2-1.3) mg/dL AST (14-36) U/L ALT (7-56) U/L Alkaline Phosphatase (38-126) U/L Total Creatine Kinase 79 (35-230) U/L Troponin I ng/mL NT-Pro-B Natriuret Pep 97.3 (0-450) pg/mL Total Protein (5.8-8.3) g/dL Albumin (3.0-4.8) g/dL Globulin gm/dL Albumin/Globulin Ratio (1.1-1.8) Arterial Blood Potassium (3.6-5.2) mmol/L Venous Blood Potassium (3.6-5.2) mmol/L Urine Color (YELLOW) Urine Appearance (CLEAR) Urine pH (4.7-8.0) Ur Specific [place] (1.005-1.035) Urine Protein (<30 mg/dL) mg/dL Urine Glucose (UA) (NEGATIVE) mg/dL Urine Ketones (NEGATIVE) mg/dL Urine Blood (NEGATIVE) Urine Nitrate (NEGATIVE) Urine Bilirubin (NEGATIVE) Urine Urobilinogen (<1 E.U./dL) E.U./dL Ur Leukocyte Esterase (NEGATIVE) [place]/uL Urine RBC (0-2) /hpf Urine WBC (0-6) /hpf Ur Epithelial Cells (0-5) /hpf Urine Bacteria (NEG) Urine HCG, Qual (NEGATIVE) Salicylates (2.0-20.0) mg/dL Urine Opiates Screen Positive H (NEGATIVE) Urine Methadone Screen Negative (NEGATIVE) Acetaminophen (10.0-20.0) ug/ml Ur Barbiturates Screen Negative (NEGATIVE) Ur Phencyclidine Scrn Negative (NEGATIVE) Ur Amphetamines Screen Negative (NEGATIVE) U Benzodiazepines Scrn Negative (NEGATIVE) U Oth Cocaine Metabols Positive H (NEGATIVE) U Cannabinoids Screen Positive H (NEGATIVE) Laboratory Results - last 24 hr 01/09/18 01/09/18 01/09/18 00:00 00:15 00:15 WBC RBC Hgb Hct MCV MCH MCHC RDW Plt Count MPV Gran % Lymph % (Auto) [place] % (Auto) Eos % (Auto) Baso % (Auto) Gran # Lymph # (Auto) [place] # (Auto) Eos # (Auto) Baso # (Auto) pCO2 pO2 HCO3 ABG pH ABG Total CO2 ABG O2 Saturation ABG Base Excess ABG Potassium VBG pH VBG pCO2 VBG HCO3 VBG Total CO2 VBG O2 Sat (Calc) VBG Base Excess VBG Potassium Sodium Chloride Glucose Lactate FiO2 Potassium Carbon Dioxide Anion Gap BUN Creatinine Est GFR ( Amer) Est GFR (Non-Af Amer) POC Glucose (mg/dL) Random Glucose Calcium Phosphorus 14.5 H Total Bilirubin AST ALT Alkaline Phosphatase Total Creatine Kinase 79 Troponin I NT-Pro-B Natriuret Pep 97.3 Total Protein Albumin Globulin Albumin/Globulin Ratio Arterial Blood Potassium Venous Blood Potassium Urine Color Yellow Urine Appearance Clear Urine pH 6.0 Ur Specific [place] 1.020 Urine Protein Negative Urine Glucose (UA) Negative Urine Ketones Negative Urine Blood Trace-intact H Urine Nitrate Negative Urine Bilirubin Negative Urine Urobilinogen 0.2 Ur Leukocyte Esterase Negative Urine RBC 1 - 3 Urine WBC 0 - 2 Ur Epithelial Cells 1 - 3 Urine Bacteria Few Urine HCG, Qual Negative Salicylates Urine Opiates Screen Positive H Urine Methadone Screen Negative Acetaminophen Ur Barbiturates Screen Negative Ur Phencyclidine Scrn Negative Ur Amphetamines Screen Negative U Benzodiazepines Scrn Negative U Oth Cocaine Metabols Positive H U Cannabinoids Screen Positive H 01/09/18 01/09/18 01/09/18 00:15 02:45 02:45 WBC 17.4 H D RBC 5.00 Hgb 14.4 D Hct 43.5 MCV 87.0 D MCH 28.8 MCHC 33.1 RDW 13.9 Plt Count 280 MPV 10.2 Gran % 70.6 H Lymph % (Auto) 26.2 [place] % (Auto) 2.9 Eos % (Auto) 0.1 L Baso % (Auto) 0.2 Gran # 12.29 H Lymph # (Auto) 4.6 H [place] # (Auto) 0.5 Eos # (Auto) 0.0 Baso # (Auto) 0.03 pCO2 35 pO2 490.0 H HCO3 8.8 L* ABG pH 7.01 L* ABG Total CO2 9.9 L ABG O2 Saturation 100.3 H ABG Base Excess -21.5 L ABG Potassium 6.1 H VBG pH VBG pCO2 VBG HCO3 VBG Total CO2 VBG O2 Sat (Calc) VBG Base Excess VBG Potassium Sodium 137.0 148 Chloride 111.0 H 116 H Glucose 329 H Lactate 9.8 H* FiO2 100.0 Potassium 5.5 H Carbon Dioxide 16 L Anion Gap 22 H BUN 18 Creatinine 1.6 H Est GFR ( Amer) 46 Est GFR (Non-Af Amer) 38 POC Glucose (mg/dL) Random Glucose 83 Calcium 7.3 L Phosphorus Total Bilirubin 0.4 AST 1923 H ALT 1419 H Alkaline Phosphatase 176 H D Total Creatine Kinase Troponin I 1.24 H* D NT-Pro-B Natriuret Pep Total Protein 7.1 Albumin 3.9 Globulin 3.2 Albumin/Globulin Ratio 1.2 Arterial Blood Potassium 6.1 H Venous Blood Potassium Urine Color Urine Appearance Urine pH Ur Specific [place] Urine Protein Urine Glucose (UA) Urine Ketones Urine Blood Urine Nitrate Urine Bilirubin Urine Urobilinogen Ur Leukocyte Esterase Urine RBC Urine WBC Ur Epithelial Cells Urine Bacteria Urine HCG, Qual Salicylates Urine Opiates Screen Urine Methadone Screen Acetaminophen Ur Barbiturates Screen Ur Phencyclidine Scrn Ur Amphetamines Screen U Benzodiazepines Scrn U Oth Cocaine Metabols U Cannabinoids Screen 01/09/18 01/09/18 01/09/18 02:45 04:40 06:06 WBC RBC Hgb Hct MCV MCH MCHC RDW Plt Count MPV Gran % Lymph % (Auto) [place] % (Auto) Eos % (Auto) Baso % (Auto) Gran # Lymph # (Auto) [place] # (Auto) Eos # (Auto) Baso # (Auto) pCO2 pO2 168 H HCO3 ABG pH ABG Total CO2 ABG O2 Saturation ABG Base Excess ABG Potassium VBG pH 7.16 L* VBG pCO2 43.0 VBG HCO3 15.3 L VBG Total CO2 16.6 L VBG O2 Sat (Calc) 100.3 H VBG Base Excess -13.0 L VBG Potassium 5.3 H Sodium 139.0 Chloride 110.0 H Glucose 82 Lactate 4.3 H* FiO2 21.0 Potassium Carbon Dioxide Anion Gap BUN Creatinine Est GFR ( Amer) Est GFR (Non-Af Amer) POC Glucose (mg/dL) 41 L 80 Random Glucose Calcium Phosphorus Total Bilirubin AST ALT Alkaline Phosphatase Total Creatine Kinase Troponin I NT-Pro-B Natriuret Pep Total Protein Albumin Globulin Albumin/Globulin Ratio Arterial Blood Potassium Venous Blood Potassium 5.3 H Urine Color Urine Appearance Urine pH Ur Specific [place] Urine Protein Urine Glucose (UA) Urine Ketones Urine Blood Urine Nitrate Urine Bilirubin Urine Urobilinogen Ur Leukocyte Esterase Urine RBC Urine WBC Ur Epithelial Cells Urine Bacteria Urine HCG, Qual Salicylates Urine Opiates Screen Urine Methadone Screen Acetaminophen Ur Barbiturates Screen Ur Phencyclidine Scrn Ur Amphetamines Screen U Benzodiazepines Scrn U Oth Cocaine Metabols U Cannabinoids Screen 01/09/18 01/09/18 07:00 08:00 WBC RBC Hgb Hct MCV MCH MCHC RDW Plt Count MPV Gran % Lymph % (Auto) [place] % (Auto) Eos % (Auto) Baso % (Auto) Gran # Lymph # (Auto) [place] # (Auto) Eos # (Auto) Baso # (Auto) pCO2 pO2 HCO3 ABG pH ABG Total CO2 ABG O2 Saturation ABG Base Excess ABG Potassium VBG pH VBG pCO2 VBG HCO3 VBG Total CO2 VBG O2 Sat (Calc) VBG Base Excess VBG Potassium Sodium Chloride Glucose Lactate FiO2 Potassium Carbon Dioxide Anion Gap BUN Creatinine Est GFR ( Amer) Est GFR (Non-Af Amer) POC Glucose (mg/dL) 50 L Random Glucose Calcium Phosphorus Total Bilirubin AST ALT Alkaline Phosphatase Total Creatine Kinase Troponin I NT-Pro-B Natriuret Pep Total Protein Albumin Globulin Albumin/Globulin Ratio Arterial Blood Potassium Venous Blood Potassium Urine Color Urine Appearance Urine pH Ur Specific [place] Urine Protein Urine Glucose (UA) Urine Ketones Urine Blood Urine Nitrate Urine Bilirubin Urine Urobilinogen Ur Leukocyte Esterase Urine RBC Urine WBC Ur Epithelial Cells Urine Bacteria Urine HCG, Qual Salicylates < 1 L Urine Opiates Screen Urine Methadone Screen Acetaminophen < 10.0 L Ur Barbiturates Screen Ur Phencyclidine Scrn Ur Amphetamines Screen U Benzodiazepines Scrn U Oth Cocaine Metabols U Cannabinoids Screen EKG/Cardiology Studies: Cardiology / EKG Studies 01/09/18 05:00 EKG [ELECTROCARDIOGRAM] Routine Comment: Reason For Exam: s/p cardiac arrest Fingerstick Blood Sugar Results: 50 Critical Care Progress Note - Nutrition Nutrition: Nutrition Category Date Time Status NPO Diet [DIET] Diets 01/09/18 Breakfast Ordered Assessment/Plan - Assessment and Plan (Free Text) Assessment: 28 yo female with unknown past medical history presents s/p cardiac arrest with ROSC achieved in the field reportedly post heroin overdose. Admitted to the ICU for cardiogenic shock. Plan: Neuro: - CT head showed diffuse cerebral edema likely 2/2 anoxic brain injury - Keppra IVPB - Hypertonic saline 3% at 30 cc/hr - Solucortef - EEG ordered - Maintain normothermia - Seizure precautions - Hypothermia protocol s/p cardiac arrest stopped due to sepsis - Neuro consulted CV: - S/p cardiac arrest with ROSC - Central venous access obtained via TLC in right femoral vein - Cont Levophed and Vasopressin - Echo ordered - Maintain MAP > 65 - Cardio consulted Pulm: - Mechanical ventilation (40/5/16/400) - ABG and CXR reviewed - Maintain O2 sat > 90% - Aspiration precautions, head of bead to 45 GI: - Elevated LFT's 2/2 shock liver - Acetylcysteine gtt - Protonix gtt - Abd/Pelvis CT ordered - Maintain OG tube - NPO - GI consulted Renal: - Bicarb gtt - Maintain euvolemia - Monitor I's and O's - Nephro consulted Endo: - Accuchecks - Maintain euglycemia Heme: - SCD's for DVT PPx - Monitor H/H ID: - F/u panculture, c. diff, HIV, acute hepatitis panel, procal - Cont cefepime, vancomycin - ID consulted Pt seen and discussed in detail with Dr. Cardona. Stefan Vaughan, PGY1 <Eduardo Cardona - Last Filed: 01/09/18 14:46> CCU Objective - Vital Signs / Intake & Output Vital Signs (Last 4 hours): Vital Signs Temp Pulse Resp BP Pulse Ox 01/09/18 13:45 93.4 F L 104 H 129/80 99 01/09/18 13:40 93.4 F L 103 H 98 01/09/18 13:30 93.4 F L 104 H 120/76 98 01/09/18 13:20 93.2 F L 93 H 98 01/09/18 13:15 93.2 F L 91 H 120/76 98 01/09/18 13:10 93.0 F L 91 H 96 01/09/18 13:00 93.0 F L 92 H 109/66 96 01/09/18 12:55 93.0 F L 94 H 121/72 96 01/09/18 12:50 95 H 139/94 H 97 01/09/18 12:45 95 H 135/90 97 01/09/18 12:40 95 H 134/93 H 97 01/09/18 12:35 95 H 137/87 97 01/09/18 12:30 95 H 137/86 97 01/09/18 12:28 97 H 159/100 H 98 01/09/18 12:27 97 H 19 98 01/09/18 12:24 98 H 01/09/18 12:00 120/79 01/09/18 11:59 93 H 16 01/09/18 11:57 94 H 123/81 01/09/18 11:55 94 H 119/75 01/09/18 11:50 94 H 116/75 01/09/18 11:46 93 H 113/73 01/09/18 11:45 94 H 121/75 01/09/18 11:40 94 H 120/74 01/09/18 11:35 94 H 120/82 01/09/18 11:30 94 H 01/09/18 11:25 94 H 149/85 01/09/18 11:20 93.0 F L 93 H 121/75 98 01/09/18 11:15 93.0 F L 93 H 113/73 98 01/09/18 11:10 93.0 F L 93 H 116/70 98 01/09/18 11:05 92.8 F L 93 H 110/65 98 01/09/18 11:00 92.8 F L 94 H 113/65 98 01/09/18 10:55 92.8 F L 94 H 108/70 98 01/09/18 10:50 92.7 F L 94 H 98 Intake and Output (Last 8hrs): Intake & Output 01/08/18 01/09/18 01/09/18 22:59 06:59 14:59 Intake Total 3898 Output Total 145 Balance 3753 Weight 139 lb 6.4 oz Intake: IV 898 Left Antecubital 0 Left Hand 675 Oral 0 Tube Feeding 0 TPN/PPN 0 Blood Product 0 Lipid 0 Albumin 0 Other 3000 Output: Urine 145 Urethral (Mccall) 125 Stool 0 Urine/Stool Mix 0 Emesis 0 Oral Regurgitation 0 Other 0 Other: Voiding Method Indwelling Catheter # Voids Urethral (Mccall) 0 # Bowel Movements 2 - Medications Active Medications: Active Medications Generic Name Dose Route Start Last Admin Trade Name Freq PRN Reason Stop Dose Admin Hydrocortisone Sodium Succinate 50 mg 01/09/18 13:30 Solu-Cortef IVP Q6 SASCHA NOREPINEPHRINE BIT/0.9 % NACL 4 mg in 250 mls @ 15 mls/hr 01/08/18 23:42 09:10 Levophed 4 Mg/ 250 Ml Ns Premixed IV 20 mcg/min .[id number] PRN 75 mls/hr TITRATE PER MD ORDER Administration Protocol 4 MCG/MIN Vancomycin HCl 1 gm in 250 mls @ 167 mls/hr 01/09/18 00:50 01/09/18 09:37 Vancomycin 1gm IVPB 167 mls/hr DAILY SASCHA Administration Protocol Sodium Bicarbonate 150 meq/ 1,150 mls @ 150 mls/hr 01/09/18 07:45 01/09/18 10 :34 Dextrose IV 150 mls/hr .[id number] SASCHA Administration Cefepime HCl 1 gm in 100 mls @ 100 mls/hr 01/09/18 07:45 01/09/18 09:36 Maxipime 1gm IVPB 100 mls/hr Q8H SASCHA Administration Protocol Vasopressin 20 units/ Dextrose 101 mls @ 9.09 mls/hr 01/09/18 08:00 01/09/18 08:53 IV 9.09 mls/hr .[id number] SASCHA Administration Protocol 0.03 U/MIN Acetylcysteine 6,323 mg/ 1,031.615 mls @ 62.5 mls/hr 01/09/18 14:30 Dextrose IV 01/10/18 07:00 .[id number] ONE Protocol Pantoprazole Sodium 40 mg in 100 mls @ 20 mls/hr 01/09/18 10:15 01/09/18 13: 42 Protonix 40mg Ivpb IVPB 20 mls/hr .Q5H SASCHA Administration Levetiracetam 1,000 mg/ Sodium 110 mls @ 460 mls/hr 01/09/18 11:45 01/09/18 13:33 Chloride IV 460 mls/hr Q12 SASCHA Administration Sodium Chloride 500 mls @ 30 mls/hr 01/09/18 11:45 01/09/18 13:24 Hypertonic Saline 3% IV 30 mls/hr .[id number] SASCHA Administration Dobutamine HCl/Dextrose 500 mg in 250 mls @ 4.742 mls/hr 01/09/18 12:37 01/09 13:15 Dobutamine/Dextrose 5% 500mg/250ml IV 2.5 mcg/kg/min .Q24H PRN 4.742 mls/hr TITRATE PER PROTOCOL Administration Protocol 2.5 MCG/KG/MIN - Patient Studies Lab Studies: Lab Studies 01/09/18 01/09/18 01/09/18 Range/Units 08:00 07:00 06:06 WBC (4.5-11.0) 10^3/ul RBC (3.5-6.1) 10^6/uL Hgb (12.0-16.0) g/dL Hct (36.0-48.0) % MCV (80.0-105.0) fl MCH (25.0-35.0) pg MCHC (31.0-37.0) g/dl RDW (11.5-14.5) % Plt Count (120.0-450.0) 10^3/uL MPV (7.0-11.0) fl Gran % (50.0-68.0) % Lymph % (Auto) (22.0-35.0) % [place] % (Auto) (1.0-6.0) % Eos % (Auto) (1.5-5.0) % Baso % (Auto) (0.0-3.0) % Gran # (1.4-6.5) Lymph # (Auto) (1.2-3.4) [place] # (Auto) (0.1-0.6) Eos # (Auto) (0.0-0.7) Baso # (Auto) (0.0-2.0) K/mm3 pCO2 (35-45) mm/Hg pO2 (80-100) mm/Hg HCO3 (21-28) mmol/L ABG pH (7.35-7.45) ABG Total CO2 (22-28) mmol.L ABG O2 Saturation (95-98) % ABG Base Excess (-2.0-3.0) mmol/L ABG Potassium (3.6-5.2) mmol/L VBG pH (7.32-7.43) VBG pCO2 (40-60) VBG HCO3 (21-28) mmol/l VBG Total CO2 (22-28) mmol.L VBG O2 Sat (Calc) (40-65) % VBG Base Excess (0.0-2.0) mmol/L VBG Potassium (3.6-5.2) mmol/L Sodium (132-148) mmol/L Chloride (98-107) mmol/L Glucose (65-105) mg/dl Lactate (0.7-2.1) mmol/L FiO2 % Potassium (3.6-5.0) mmol/L Carbon Dioxide (21-33) mmol/L Anion Gap (10-20) BUN (7-21) mg/dL Creatinine (0.7-1.2) mg/dl Est GFR ( Amer) Est GFR (Non-Af Amer) POC Glucose (mg/dL) 50 L 80 (65-110) mg/dL Random Glucose (70-110) mg/dL Uric Acid (2.5-6.2) mg/dL Calcium (8.4-10.5) mg/dL Phosphorus (2.5-4.5) mg/dL Total Bilirubin (0.2-1.3) mg/dL AST (14-36) U/L ALT (7-56) U/L Alkaline Phosphatase (38-126) U/L Total Creatine Kinase (35-230) U/L Troponin I ng/mL NT-Pro-B Natriuret Pep (0-450) pg/mL Total Protein (5.8-8.3) g/dL Albumin (3.0-4.8) g/dL Globulin gm/dL Albumin/Globulin Ratio (1.1-1.8) Procalcitonin (0.19-0.49) NG/ML Arterial Blood Potassium (3.6-5.2) mmol/L Venous Blood Potassium (3.6-5.2) mmol/L Urine Color (YELLOW) Urine Appearance (CLEAR) Urine pH (4.7-8.0) Ur Specific [place] (1.005-1.035) Urine Protein (<30 mg/dL) mg/dL Urine Glucose (UA) (NEGATIVE) mg/dL Urine Ketones (NEGATIVE) mg/dL Urine Blood (NEGATIVE) Urine Nitrate (NEGATIVE) Urine Bilirubin (NEGATIVE) Urine Urobilinogen (<1 E.U./dL) E.U./dL Ur Leukocyte Esterase (NEGATIVE) [place]/uL Urine RBC (0-2) /hpf Urine WBC (0-6) /hpf Ur Epithelial Cells (0-5) /hpf Urine Bacteria (NEG) Urine HCG, Qual (NEGATIVE) Salicylates < 1 L (2.0-20.0) mg/dL Urine Opiates Screen (NEGATIVE) Urine Methadone Screen (NEGATIVE) Acetaminophen < 10.0 L (10.0-20.0) ug/ml Ur Barbiturates Screen (NEGATIVE) Ur Phencyclidine Scrn (NEGATIVE) Ur Amphetamines Screen (NEGATIVE) U Benzodiazepines Scrn (NEGATIVE) U Oth Cocaine Metabols (NEGATIVE) U Cannabinoids Screen (NEGATIVE) Hepatitis A IgM Ab (NEGATIVE) Hep Bs Antigen (NEGATIVE) Hep B Core IgM Ab (NEGATIVE) Hepatitis C Antibody (NEGATIVE) 01/09/18 01/09/18 01/09/18 Range/Units 06:00 04:40 02:45 WBC (4.5-11.0) 10^3/ul RBC (3.5-6.1) 10^6/uL Hgb (12.0-16.0) g/dL Hct (36.0-48.0) % MCV (80.0-105.0) fl MCH (25.0-35.0) pg MCHC (31.0-37.0) g/dl RDW (11.5-14.5) % Plt Count (120.0-450.0) 10^3/uL MPV (7.0-11.0) fl Gran % (50.0-68.0) % Lymph % (Auto) (22.0-35.0) % [place] % (Auto) (1.0-6.0) % Eos % (Auto) (1.5-5.0) % Baso % (Auto) (0.0-3.0) % Gran # (1.4-6.5) Lymph # (Auto) (1.2-3.4) [place] # (Auto) (0.1-0.6) Eos # (Auto) (0.0-0.7) Baso # (Auto) (0.0-2.0) K/mm3 pCO2 (35-45) mm/Hg pO2 168 H (80-100) mm/Hg HCO3 (21-28) mmol/L ABG pH (7.35-7.45) ABG Total CO2 (22-28) mmol.L ABG O2 Saturation (95-98) % ABG Base Excess (-2.0-3.0) mmol/L ABG Potassium (3.6-5.2) mmol/L VBG pH 7.16 L* (7.32-7.43) VBG pCO2 43.0 (40-60) VBG HCO3 15.3 L (21-28) mmol/l VBG Total CO2 16.6 L (22-28) mmol.L VBG O2 Sat (Calc) 100.3 H (40-65) % VBG Base Excess -13.0 L (0.0-2.0) mmol/L VBG Potassium 5.3 H (3.6-5.2) mmol/L Sodium 139.0 (132-148) mmol/L Chloride 110.0 H (98-107) mmol/L Glucose 82 (65-105) mg/dl Lactate 4.3 H* (0.7-2.1) mmol/L FiO2 21.0 % Potassium (3.6-5.0) mmol/L Carbon Dioxide (21-33) mmol/L Anion Gap (10-20) BUN (7-21) mg/dL Creatinine (0.7-1.2) mg/dl Est GFR ( Amer) Est GFR (Non-Af Amer) POC Glucose (mg/dL) 41 L (65-110) mg/dL Random Glucose (70-110) mg/dL Uric Acid 11.0 H (2.5-6.2) mg/dL Calcium (8.4-10.5) mg/dL Phosphorus (2.5-4.5) mg/dL Total Bilirubin (0.2-1.3) mg/dL AST (14-36) U/L ALT (7-56) U/L Alkaline Phosphatase (38-126) U/L Total Creatine Kinase (35-230) U/L Troponin I ng/mL NT-Pro-B Natriuret Pep (0-450) pg/mL Total Protein (5.8-8.3) g/dL Albumin (3.0-4.8) g/dL Globulin gm/dL Albumin/Globulin Ratio (1.1-1.8) Procalcitonin (0.19-0.49) NG/ML Arterial Blood Potassium (3.6-5.2) mmol/L Venous Blood Potassium 5.3 H (3.6-5.2) mmol/L Urine Color (YELLOW) Urine Appearance (CLEAR) Urine pH (4.7-8.0) Ur Specific [place] (1.005-1.035) Urine Protein (<30 mg/dL) mg/dL Urine Glucose (UA) (NEGATIVE) mg/dL Urine Ketones (NEGATIVE) mg/dL Urine Blood (NEGATIVE) Urine Nitrate (NEGATIVE) Urine Bilirubin (NEGATIVE) Urine Urobilinogen (<1 E.U./dL) E.U./dL Ur Leukocyte Esterase (NEGATIVE) [place]/uL Urine RBC (0-2) /hpf Urine WBC (0-6) /hpf Ur Epithelial Cells (0-5) /hpf Urine Bacteria (NEG) Urine HCG, Qual (NEGATIVE) Salicylates (2.0-20.0) mg/dL Urine Opiates Screen (NEGATIVE) Urine Methadone Screen (NEGATIVE) Acetaminophen (10.0-20.0) ug/ml Ur Barbiturates Screen (NEGATIVE) Ur Phencyclidine Scrn (NEGATIVE) Ur Amphetamines Screen (NEGATIVE) U Benzodiazepines Scrn (NEGATIVE) U Oth Cocaine Metabols (NEGATIVE) U Cannabinoids Screen (NEGATIVE) Hepatitis A IgM Ab (NEGATIVE) Hep Bs Antigen (NEGATIVE) Hep B Core IgM Ab (NEGATIVE) Hepatitis C Antibody (NEGATIVE) 01/09/18 01/09/18 01/09/18 Range/Units 02:45 02:45 02:00 WBC 17.4 H D (4.5-11.0) 10^3/ul RBC 5.00 (3.5-6.1) 10^6/uL Hgb 14.4 D (12.0-16.0) g/dL Hct 43.5 (36.0-48.0) % MCV 87.0 D (80.0-105.0) fl MCH 28.8 (25.0-35.0) pg MCHC 33.1 (31.0-37.0) g/dl RDW 13.9 (11.5-14.5) % Plt Count 280 (120.0-450.0) 10^3/uL MPV 10.2 (7.0-11.0) fl Gran % 70.6 H (50.0-68.0) % Lymph % (Auto) 26.2 (22.0-35.0) % [place] % (Auto) 2.9 (1.0-6.0) % Eos % (Auto) 0.1 L (1.5-5.0) % Baso % (Auto) 0.2 (0.0-3.0) % Gran # 12.29 H (1.4-6.5) Lymph # (Auto) 4.6 H (1.2-3.4) [place] # (Auto) 0.5 (0.1-0.6) Eos # (Auto) 0.0 (0.0-0.7) Baso # (Auto) 0.03 (0.0-2.0) K/mm3 pCO2 (35-45) mm/Hg pO2 (80-100) mm/Hg HCO3 (21-28) mmol/L ABG pH (7.35-7.45) ABG Total CO2 (22-28) mmol.L ABG O2 Saturation (95-98) % ABG Base Excess (-2.0-3.0) mmol/L ABG Potassium (3.6-5.2) mmol/L VBG pH (7.32-7.43) VBG pCO2 (40-60) VBG HCO3 (21-28) mmol/l VBG Total CO2 (22-28) mmol.L VBG O2 Sat (Calc) (40-65) % VBG Base Excess (0.0-2.0) mmol/L VBG Potassium (3.6-5.2) mmol/L Sodium 148 (132-148) mmol/L Chloride 116 H (98-107) mmol/L Glucose (65-105) mg/dl Lactate (0.7-2.1) mmol/L FiO2 % Potassium 5.5 H (3.6-5.0) mmol/L Carbon Dioxide 16 L (21-33) mmol/L Anion Gap 22 H (10-20) BUN 18 (7-21) mg/dL Creatinine 1.6 H (0.7-1.2) mg/dl Est GFR ( Amer) 46 Est GFR (Non-Af Amer) 38 POC Glucose (mg/dL) (65-110) mg/dL Random Glucose 83 (70-110) mg/dL Uric Acid (2.5-6.2) mg/dL Calcium 7.3 L (8.4-10.5) mg/dL Phosphorus (2.5-4.5) mg/dL Total Bilirubin 0.4 (0.2-1.3) mg/dL AST 1923 H (14-36) U/L ALT 1419 H (7-56) U/L Alkaline Phosphatase 176 H D (38-126) U/L Total Creatine Kinase (35-230) U/L Troponin I 1.24 H* D ng/mL NT-Pro-B Natriuret Pep (0-450) pg/mL Total Protein 7.1 (5.8-8.3) g/dL Albumin 3.9 (3.0-4.8) g/dL Globulin 3.2 gm/dL Albumin/Globulin Ratio 1.2 (1.1-1.8) Procalcitonin (0.19-0.49) NG/ML Arterial Blood Potassium (3.6-5.2) mmol/L Venous Blood Potassium (3.6-5.2) mmol/L Urine Color (YELLOW) Urine Appearance (CLEAR) Urine pH (4.7-8.0) Ur Specific [place] (1.005-1.035) Urine Protein (<30 mg/dL) mg/dL Urine Glucose (UA) (NEGATIVE) mg/dL Urine Ketones (NEGATIVE) mg/dL Urine Blood (NEGATIVE) Urine Nitrate (NEGATIVE) Urine Bilirubin (NEGATIVE) Urine Urobilinogen (<1 E.U./dL) E.U./dL Ur Leukocyte Esterase (NEGATIVE) [place]/uL Urine RBC (0-2) /hpf Urine WBC (0-6) /hpf Ur Epithelial Cells (0-5) /hpf Urine Bacteria (NEG) Urine HCG, Qual (NEGATIVE) Salicylates (2.0-20.0) mg/dL Urine Opiates Screen (NEGATIVE) Urine Methadone Screen (NEGATIVE) Acetaminophen (10.0-20.0) ug/ml Ur Barbiturates Screen (NEGATIVE) Ur Phencyclidine Scrn (NEGATIVE) Ur Amphetamines Screen (NEGATIVE) U Benzodiazepines Scrn (NEGATIVE) U Oth Cocaine Metabols (NEGATIVE) U Cannabinoids Screen (NEGATIVE) Hepatitis A IgM Ab Negative (NEGATIVE) Hep Bs Antigen Negative (NEGATIVE) Hep B Core IgM Ab Negative (NEGATIVE) Hepatitis C Antibody Reactive (NEGATIVE) 01/09/18 01/09/18 01/09/18 Range/Units 00:15 00:15 00:15 WBC (4.5-11.0) 10^3/ul RBC (3.5-6.1) 10^6/uL Hgb (12.0-16.0) g/dL Hct (36.0-48.0) % MCV (80.0-105.0) fl MCH (25.0-35.0) pg MCHC (31.0-37.0) g/dl RDW (11.5-14.5) % Plt Count (120.0-450.0) 10^3/uL MPV (7.0-11.0) fl Gran % (50.0-68.0) % Lymph % (Auto) (22.0-35.0) % [place] % (Auto) (1.0-6.0) % Eos % (Auto) (1.5-5.0) % Baso % (Auto) (0.0-3.0) % Gran # (1.4-6.5) Lymph # (Auto) (1.2-3.4) [place] # (Auto) (0.1-0.6) Eos # (Auto) (0.0-0.7) Baso # (Auto) (0.0-2.0) K/mm3 pCO2 35 (35-45) mm/Hg pO2 490.0 H (80-100) mm/Hg HCO3 8.8 L* (21-28) mmol/L ABG pH 7.01 L* (7.35-7.45) ABG Total CO2 9.9 L (22-28) mmol.L ABG O2 Saturation 100.3 H (95-98) % ABG Base Excess -21.5 L (-2.0-3.0) mmol/L ABG Potassium 6.1 H (3.6-5.2) mmol/L VBG pH (7.32-7.43) VBG pCO2 (40-60) VBG HCO3 (21-28) mmol/l VBG Total CO2 (22-28) mmol.L VBG O2 Sat (Calc) (40-65) % VBG Base Excess (0.0-2.0) mmol/L VBG Potassium (3.6-5.2) mmol/L Sodium 137.0 (132-148) mmol/L Chloride 111.0 H (98-107) mmol/L Glucose 329 H (65-105) mg/dl Lactate 9.8 H* (0.7-2.1) mmol/L FiO2 100.0 % Potassium (3.6-5.0) mmol/L Carbon Dioxide (21-33) mmol/L Anion Gap (10-20) BUN (7-21) mg/dL Creatinine (0.7-1.2) mg/dl Est GFR ( Amer) Est GFR (Non-Af Amer) POC Glucose (mg/dL) (65-110) mg/dL Random Glucose (70-110) mg/dL Uric Acid (2.5-6.2) mg/dL Calcium (8.4-10.5) mg/dL Phosphorus (2.5-4.5) mg/dL Total Bilirubin (0.2-1.3) mg/dL AST (14-36) U/L ALT (7-56) U/L Alkaline Phosphatase (38-126) U/L Total Creatine Kinase (35-230) U/L Troponin I ng/mL NT-Pro-B Natriuret Pep (0-450) pg/mL Total Protein (5.8-8.3) g/dL Albumin (3.0-4.8) g/dL Globulin gm/dL Albumin/Globulin Ratio (1.1-1.8) Procalcitonin 0.30 (0.19-0.49) NG/ML Arterial Blood Potassium 6.1 H (3.6-5.2) mmol/L Venous Blood Potassium (3.6-5.2) mmol/L Urine Color Yellow (YELLOW) Urine Appearance Clear (CLEAR) Urine pH 6.0 (4.7-8.0) Ur Specific [place] 1.020 (1.005-1.035) Urine Protein Negative (<30 mg/dL) mg/dL Urine Glucose (UA) Negative (NEGATIVE) mg/dL Urine Ketones Negative (NEGATIVE) mg/dL Urine Blood Trace-intact H (NEGATIVE) Urine Nitrate Negative (NEGATIVE) Urine Bilirubin Negative (NEGATIVE) Urine Urobilinogen 0.2 (<1 E.U./dL) E.U./dL Ur Leukocyte Esterase Negative (NEGATIVE) [place]/uL Urine RBC 1 - 3 (0-2) /hpf Urine WBC 0 - 2 (0-6) /hpf Ur Epithelial Cells 1 - 3 (0-5) /hpf Urine Bacteria Few (NEG) Urine HCG, Qual Negative (NEGATIVE) Salicylates (2.0-20.0) mg/dL Urine Opiates Screen (NEGATIVE) Urine Methadone Screen (NEGATIVE) Acetaminophen (10.0-20.0) ug/ml Ur Barbiturates Screen (NEGATIVE) Ur Phencyclidine Scrn (NEGATIVE) Ur Amphetamines Screen (NEGATIVE) U Benzodiazepines Scrn (NEGATIVE) U Oth Cocaine Metabols (NEGATIVE) U Cannabinoids Screen (NEGATIVE) Hepatitis A IgM Ab (NEGATIVE) Hep Bs Antigen (NEGATIVE) Hep B Core IgM Ab (NEGATIVE) Hepatitis C Antibody (NEGATIVE) 01/09/18 01/09/18 Range/Units 00:15 00:00 WBC (4.5-11.0) 10^3/ul RBC (3.5-6.1) 10^6/uL Hgb (12.0-16.0) g/dL Hct (36.0-48.0) % MCV (80.0-105.0) fl MCH (25.0-35.0) pg MCHC (31.0-37.0) g/dl RDW (11.5-14.5) % Plt Count (120.0-450.0) 10^3/uL MPV (7.0-11.0) fl Gran % (50.0-68.0) % Lymph % (Auto) (22.0-35.0) % [place] % (Auto) (1.0-6.0) % Eos % (Auto) (1.5-5.0) % Baso % (Auto) (0.0-3.0) % Gran # (1.4-6.5) Lymph # (Auto) (1.2-3.4) [place] # (Auto) (0.1-0.6) Eos # (Auto) (0.0-0.7) Baso # (Auto) (0.0-2.0) K/mm3 pCO2 (35-45) mm/Hg pO2 (80-100) mm/Hg HCO3 (21-28) mmol/L ABG pH (7.35-7.45) ABG Total CO2 (22-28) mmol.L ABG O2 Saturation (95-98) % ABG Base Excess (-2.0-3.0) mmol/L ABG Potassium (3.6-5.2) mmol/L VBG pH (7.32-7.43) VBG pCO2 (40-60) VBG HCO3 (21-28) mmol/l VBG Total CO2 (22-28) mmol.L VBG O2 Sat (Calc) (40-65) % VBG Base Excess (0.0-2.0) mmol/L VBG Potassium (3.6-5.2) mmol/L Sodium (132-148) mmol/L Chloride (98-107) mmol/L Glucose (65-105) mg/dl Lactate (0.7-2.1) mmol/L FiO2 % Potassium (3.6-5.0) mmol/L Carbon Dioxide (21-33) mmol/L Anion Gap (10-20) BUN (7-21) mg/dL Creatinine (0.7-1.2) mg/dl Est GFR ( Amer) Est GFR (Non-Af Amer) POC Glucose (mg/dL) (65-110) mg/dL Random Glucose (70-110) mg/dL Uric Acid (2.5-6.2) mg/dL Calcium (8.4-10.5) mg/dL Phosphorus 14.5 H (2.5-4.5) mg/dL Total Bilirubin (0.2-1.3) mg/dL AST (14-36) U/L ALT (7-56) U/L Alkaline Phosphatase (38-126) U/L Total Creatine Kinase 79 (35-230) U/L Troponin I ng/mL NT-Pro-B Natriuret Pep 97.3 (0-450) pg/mL Total Protein (5.8-8.3) g/dL Albumin (3.0-4.8) g/dL Globulin gm/dL Albumin/Globulin Ratio (1.1-1.8) Procalcitonin (0.19-0.49) NG/ML Arterial Blood Potassium (3.6-5.2) mmol/L Venous Blood Potassium (3.6-5.2) mmol/L Urine Color (YELLOW) Urine Appearance (CLEAR) Urine pH (4.7-8.0) Ur Specific [place] (1.005-1.035) Urine Protein (<30 mg/dL) mg/dL Urine Glucose (UA) (NEGATIVE) mg/dL Urine Ketones (NEGATIVE) mg/dL Urine Blood (NEGATIVE) Urine Nitrate (NEGATIVE) Urine Bilirubin (NEGATIVE) Urine Urobilinogen (<1 E.U./dL) E.U./dL Ur Leukocyte Esterase (NEGATIVE) [place]/uL Urine RBC (0-2) /hpf Urine WBC (0-6) /hpf Ur Epithelial Cells (0-5) /hpf Urine Bacteria (NEG) Urine HCG, Qual (NEGATIVE) Salicylates (2.0-20.0) mg/dL Urine Opiates Screen Positive H (NEGATIVE) Urine Methadone Screen Negative (NEGATIVE) Acetaminophen (10.0-20.0) ug/ml Ur Barbiturates Screen Negative (NEGATIVE) Ur Phencyclidine Scrn Negative (NEGATIVE) Ur Amphetamines Screen Negative (NEGATIVE) U Benzodiazepines Scrn Negative (NEGATIVE) U Oth Cocaine Metabols Positive H (NEGATIVE) U Cannabinoids Screen Positive H (NEGATIVE) Hepatitis A IgM Ab (NEGATIVE) Hep Bs Antigen (NEGATIVE) Hep B Core IgM Ab (NEGATIVE) Hepatitis C Antibody (NEGATIVE) Laboratory Results - last 24 hr 01/09/18 01/09/18 01/09/18 00:00 00:15 00:15 WBC RBC Hgb Hct MCV MCH MCHC RDW Plt Count MPV Gran % Lymph % (Auto) [place] % (Auto) Eos % (Auto) Baso % (Auto) Gran # Lymph # (Auto) [place] # (Auto) Eos # (Auto) Baso # (Auto) pCO2 pO2 HCO3 ABG pH ABG Total CO2 ABG O2 Saturation ABG Base Excess ABG Potassium VBG pH VBG pCO2 VBG HCO3 VBG Total CO2 VBG O2 Sat (Calc) VBG Base Excess VBG Potassium Sodium Chloride Glucose Lactate FiO2 Potassium Carbon Dioxide Anion Gap BUN Creatinine Est GFR ( Amer) Est GFR (Non-Af Amer) POC Glucose (mg/dL) Random Glucose Uric Acid Calcium Phosphorus 14.5 H Total Bilirubin AST ALT Alkaline Phosphatase Total Creatine Kinase 79 Troponin I NT-Pro-B Natriuret Pep 97.3 Total Protein Albumin Globulin Albumin/Globulin Ratio Procalcitonin Arterial Blood Potassium Venous Blood Potassium Urine Color Yellow Urine Appearance Clear Urine pH 6.0 Ur Specific [place] 1.020 Urine Protein Negative Urine Glucose (UA) Negative Urine Ketones Negative Urine Blood Trace-intact H Urine Nitrate Negative Urine Bilirubin Negative Urine Urobilinogen 0.2 Ur Leukocyte Esterase Negative Urine RBC 1 - 3 Urine WBC 0 - 2 Ur Epithelial Cells 1 - 3 Urine Bacteria Few Urine HCG, Qual Negative Salicylates Urine Opiates Screen Positive H Urine Methadone Screen Negative Acetaminophen Ur Barbiturates Screen Negative Ur Phencyclidine Scrn Negative Ur Amphetamines Screen Negative U Benzodiazepines Scrn Negative U Oth Cocaine Metabols Positive H U Cannabinoids Screen Positive H Hepatitis A IgM Ab Hep Bs Antigen Hep B Core IgM Ab Hepatitis C Antibody 01/09/18 01/09/18 01/09/18 00:15 00:15 02:00 WBC RBC Hgb Hct MCV MCH MCHC RDW Plt Count MPV Gran % Lymph % (Auto) [place] % (Auto) Eos % (Auto) Baso % (Auto) Gran # Lymph # (Auto) [place] # (Auto) Eos # (Auto) Baso # (Auto) pCO2 35 pO2 490.0 H HCO3 8.8 L* ABG pH 7.01 L* ABG Total CO2 9.9 L ABG O2 Saturation 100.3 H ABG Base Excess -21.5 L ABG Potassium 6.1 H VBG pH VBG pCO2 VBG HCO3 VBG Total CO2 VBG O2 Sat (Calc) VBG Base Excess VBG Potassium Sodium 137.0 Chloride 111.0 H Glucose 329 H Lactate 9.8 H* FiO2 100.0 Potassium Carbon Dioxide Anion Gap BUN Creatinine Est GFR ( Amer) Est GFR (Non-Af Amer) POC Glucose (mg/dL) Random Glucose Uric Acid Calcium Phosphorus Total Bilirubin AST ALT Alkaline Phosphatase Total Creatine Kinase Troponin I NT-Pro-B Natriuret Pep Total Protein Albumin Globulin Albumin/Globulin Ratio Procalcitonin 0.30 Arterial Blood Potassium 6.1 H Venous Blood Potassium Urine Color Urine Appearance Urine pH Ur Specific [place] Urine Protein Urine Glucose (UA) Urine Ketones Urine Blood Urine Nitrate Urine Bilirubin Urine Urobilinogen Ur Leukocyte Esterase Urine RBC Urine WBC Ur Epithelial Cells Urine Bacteria Urine HCG, Qual Salicylates Urine Opiates Screen Urine Methadone Screen Acetaminophen Ur Barbiturates Screen Ur Phencyclidine Scrn Ur Amphetamines Screen U Benzodiazepines Scrn U Oth Cocaine Metabols U Cannabinoids Screen Hepatitis A IgM Ab Negative Hep Bs Antigen Negative Hep B Core IgM Ab Negative Hepatitis C Antibody Reactive 01/09/18 01/09/18 01/09/18 02:45 02:45 02:45 WBC 17.4 H D RBC 5.00 Hgb 14.4 D Hct 43.5 MCV 87.0 D MCH 28.8 MCHC 33.1 RDW 13.9 Plt Count 280 MPV 10.2 Gran % 70.6 H Lymph % (Auto) 26.2 [place] % (Auto) 2.9 Eos % (Auto) 0.1 L Baso % (Auto) 0.2 Gran # 12.29 H Lymph # (Auto) 4.6 H [place] # (Auto) 0.5 Eos # (Auto) 0.0 Baso # (Auto) 0.03 pCO2 pO2 168 H HCO3 ABG pH ABG Total CO2 ABG O2 Saturation ABG Base Excess ABG Potassium VBG pH 7.16 L* VBG pCO2 43.0 VBG HCO3 15.3 L VBG Total CO2 16.6 L VBG O2 Sat (Calc) 100.3 H VBG Base Excess -13.0 L VBG Potassium 5.3 H Sodium 148 139.0 Chloride 116 H 110.0 H Glucose 82 Lactate 4.3 H* FiO2 21.0 Potassium 5.5 H Carbon Dioxide 16 L Anion Gap 22 H BUN 18 Creatinine 1.6 H Est GFR ( Amer) 46 Est GFR (Non-Af Amer) 38 POC Glucose (mg/dL) Random Glucose 83 Uric Acid Calcium 7.3 L Phosphorus Total Bilirubin 0.4 AST 1923 H ALT 1419 H Alkaline Phosphatase 176 H D Total Creatine Kinase Troponin I 1.24 H* D NT-Pro-B Natriuret Pep Total Protein 7.1 Albumin 3.9 Globulin 3.2 Albumin/Globulin Ratio 1.2 Procalcitonin Arterial Blood Potassium Venous Blood Potassium 5.3 H Urine Color Urine Appearance Urine pH Ur Specific [place] Urine Protein Urine Glucose (UA) Urine Ketones Urine Blood Urine Nitrate Urine Bilirubin Urine Urobilinogen Ur Leukocyte Esterase Urine RBC Urine WBC Ur Epithelial Cells Urine Bacteria Urine HCG, Qual Salicylates Urine Opiates Screen Urine Methadone Screen Acetaminophen Ur Barbiturates Screen Ur Phencyclidine Scrn Ur Amphetamines Screen U Benzodiazepines Scrn U Oth Cocaine Metabols U Cannabinoids Screen Hepatitis A IgM Ab Hep Bs Antigen Hep B Core IgM Ab Hepatitis C Antibody 01/09/18 01/09/18 01/09/18 04:40 06:00 06:06 WBC RBC Hgb Hct MCV MCH MCHC RDW Plt Count MPV Gran % Lymph % (Auto) [place] % (Auto) Eos % (Auto) Baso % (Auto) Gran # Lymph # (Auto) [place] # (Auto) Eos # (Auto) Baso # (Auto) pCO2 pO2 HCO3 ABG pH ABG Total CO2 ABG O2 Saturation ABG Base Excess ABG Potassium VBG pH VBG pCO2 VBG HCO3 VBG Total CO2 VBG O2 Sat (Calc) VBG Base Excess VBG Potassium Sodium Chloride Glucose Lactate FiO2 Potassium Carbon Dioxide Anion Gap BUN Creatinine Est GFR ( Amer) Est GFR (Non-Af Amer) POC Glucose (mg/dL) 41 L 80 Random Glucose Uric Acid 11.0 H Calcium Phosphorus Total Bilirubin AST ALT Alkaline Phosphatase Total Creatine Kinase Troponin I NT-Pro-B Natriuret Pep Total Protein Albumin Globulin Albumin/Globulin Ratio Procalcitonin Arterial Blood Potassium Venous Blood Potassium Urine Color Urine Appearance Urine pH Ur Specific [place] Urine Protein Urine Glucose (UA) Urine Ketones Urine Blood Urine Nitrate Urine Bilirubin Urine Urobilinogen Ur Leukocyte Esterase Urine RBC Urine WBC Ur Epithelial Cells Urine Bacteria Urine HCG, Qual Salicylates Urine Opiates Screen Urine Methadone Screen Acetaminophen Ur Barbiturates Screen Ur Phencyclidine Scrn Ur Amphetamines Screen U Benzodiazepines Scrn U Oth Cocaine Metabols U Cannabinoids Screen Hepatitis A IgM Ab Hep Bs Antigen Hep B Core IgM Ab Hepatitis C Antibody 01/09/18 01/09/18 07:00 08:00 WBC RBC Hgb Hct MCV MCH MCHC RDW Plt Count MPV Gran % Lymph % (Auto) [place] % (Auto) Eos % (Auto) Baso % (Auto) Gran # Lymph # (Auto) [place] # (Auto) Eos # (Auto) Baso # (Auto) pCO2 pO2 HCO3 ABG pH ABG Total CO2 ABG O2 Saturation ABG Base Excess ABG Potassium VBG pH VBG pCO2 VBG HCO3 VBG Total CO2 VBG O2 Sat (Calc) VBG Base Excess VBG Potassium Sodium Chloride Glucose Lactate FiO2 Potassium Carbon Dioxide Anion Gap BUN Creatinine Est GFR ( Amer) Est GFR (Non-Af Amer) POC Glucose (mg/dL) 50 L Random Glucose Uric Acid Calcium Phosphorus Total Bilirubin AST ALT Alkaline Phosphatase Total Creatine Kinase Troponin I NT-Pro-B Natriuret Pep Total Protein Albumin Globulin Albumin/Globulin Ratio Procalcitonin Arterial Blood Potassium Venous Blood Potassium Urine Color Urine Appearance Urine pH Ur Specific [place] Urine Protein Urine Glucose (UA) Urine Ketones Urine Blood Urine Nitrate Urine Bilirubin Urine Urobilinogen Ur Leukocyte Esterase Urine RBC Urine WBC Ur Epithelial Cells Urine Bacteria Urine HCG, Qual Salicylates < 1 L Urine Opiates Screen Urine Methadone Screen Acetaminophen < 10.0 L Ur Barbiturates Screen Ur Phencyclidine Scrn Ur Amphetamines Screen U Benzodiazepines Scrn U Oth Cocaine Metabols U Cannabinoids Screen Hepatitis A IgM Ab Hep Bs Antigen Hep B Core IgM Ab Hepatitis C Antibody EKG/Cardiology Studies: Cardiology / EKG Studies 01/09/18 05:00 EKG [ELECTROCARDIOGRAM] Routine Comment: Reason For Exam: s/p cardiac arrest Critical Care Progress Note - Nutrition Nutrition: Nutrition Category Date Time Status NPO Diet [DIET] Diets 01/09/18 Breakfast Ordered Attending/Attestation - Attestation I have personally seen and examined this patient.: Yes I have fully participated in the care of the patient.: Yes I have reviewed all pertinent clinical information: Yes Notes (Text): 01/09/18 14:28 28 yo female after cardiac arrest likely due to drug overdose, now with severe anoxic brain injury and likely distributive shock (neurogenic?) Neuro: sedation is off. EEG is pending, Keppra started. Hypothermic-->no need for therapeutic hypothermia, especially in the setting of substantial hemodynamic instability, GI bleed and initial "non-shockable" rhythm during ACLS. Would maintain low normothermia and avoid fever. Neuro following up as well. CTH substantial swelling and loss of differentiation between liu and white matter--due to severe anoxic brain injury. 3%NS started. Pulm: LowVt, Ppl<30, HOB>30, neutral position, oral hygiene Cardiovascular: distributive shock +/-relative adrenla insufficiency-->continue NE, add vasopressin and stress dose staeroids. Echo prelim: mild to moderate LV systolic dysfunction--tried dobutmaine, but HR went up, held it. ID: no clear cut source of infection-->but wbc-osis and hypothermia: on empiric abx, septic work up sent, CT abdo/pelvis: no "catastrophe", or changes suggestive intra-abdominal infection; ileus-like changes. GI: coffee ground NG output and some dark stool: protonix drip started, npo, serial cbc, gi consult requested Renal: MARY, likely ATN due to shock. Maintain MAP>65, avoid nephrotoxins, hyperchloremia and hyperglycemia. Maintain euvolemia. Neprho consult requested ccm time 40 min
[2018-01-09] MEDS ORDERED: Sodium Chloride 3% 500 ML IV SCH ×2 (11:45)
[2018-01-09] MEDS ORDERED: levETIRAcetam 1,000 MG in Sodium Chloride 0.9% 100 ML IV SCH (11:45)
[2018-01-09 11:51] LABS: HEPATITIS B SURFACE AG Negative (NEGATIVE)
[2018-01-09 11:57] LABS: HEPATITIS A IGM NEGATIVE (NEGATIVE); HEPATITIS B CORE AB NEGATIVE (NEGATIVE)
[2018-01-09] MEDS ORDERED: DOBUTamine 500mg/250ml D5W 500 MG/250 ML BAG IV PRN (12:37)
--- NOTE | 2018-01-09 12:46 | CT ---
PROCEDURE: CT Abdomen and Pelvis without intravenous contrast HISTORY: Sepsis, status post cardiac arrest. COMPARISON: None. TECHNIQUE: Unenhanced study. Neither oral nor intravenous contrast administered. Radiation dose: Total exam DLP = 668.16 mGy-cm. This CT exam was performed using one or more of the following dose reduction techniques: Automated exposure control, adjustment of the mA and/or kV according to patient size, and/or use of iterative reconstruction technique. FINDINGS: LOWER THORAX: Platelike atelectasis, trace pleural effusions. LIVER: Unremarkable. No gross lesion or ductal dilatation. GALLBLADDER AND BILE DUCTS: Unremarkable. PANCREAS: Unremarkable. No gross lesion or ductal dilatation. SPLEEN: Unremarkable. ADRENALS: Unremarkable. No mass. KIDNEYS AND URETERS: Unremarkable. No hydronephrosis. No solid mass. VASCULATURE: Unremarkable. No aortic aneurysm. Venous access catheter has been inserted via right femoral vein. The tip is in the right common iliac vein. BOWEL: Distended fluid-filled colon and small bowel. Maximum diameter of the cecum 8 cm. No evidence of mechanical obstruction. APPENDIX: Unremarkable. Normal appendixA normal appendix is not visualized. No right lower quadrant or pelvic inflammatory changes. . PERITONEUM: Unremarkable. No free fluid. No free air. LYMPH NODES: Unremarkable. No enlarged lymph nodes. BLADDER: The urinary bladder is decompressed by an indwelling Mccall catheter. REPRODUCTIVE: Unremarkable. BONES: No acute fracture. OTHER FINDINGS: Nasogastric tube in satisfactory position in the stomach. Mccall catheter in a decompressed urinary bladder. Rectal tube identified. IMPRESSION: No evidence of mechanical bowel obstruction, free air or free fluid. Satisfactory position of support apparatus. Additional benign and/or incidental findings described above.
[2018-01-09 13:25] LABS: HEPATITIS C ANTIBODY REACTIVE (NEGATIVE)
[2018-01-09 14:36] LABS: HEMOGLOBIN 14.9 g/dL (12.0-16.0); MEAN CORPUSCULAR HEMOGLOBIN 28.9 pg (25.0-35.0); MEAN CORPUSCULAR HGB CONC 33.6 g/dl (31.0-37.0); MEAN PLATELET VOLUME 9.8 fl (7.0-11.0); RBC 5.16 10^6/uL (3.5-6.1); RED CELL DISTRIBUTION WIDTH 14.1 % (11.5-14.5); WHITE BLOOD COUNT 17.8 10^3/ul (4.5-11.0)
--- NOTE | 2018-01-09 14:44 | CARD ---
APPROVED REPORT EXAM: Two-dimensional and M-mode echocardiogram with Doppler and color Doppler. INDICATION cardiac arrest 2D DIMENSIONS IVSd1.2 (0.7-1.1cm)LVDd4.3 (3.9-5.9cm) PWd1.4 (0.7-1.1cm)LVEF (%)30.0 (>50%) M-Mode DIMENSIONS Aortic Root3.10 (2.2-3.7cm)Aortic Cusp Exc.1.60 (1.5-2.0cm) Aortic Valve AoV Peak Rsyaeqqb51.7cm/Warren Peak GR.4mmHg Mitral Valve MV E Zogfymoz38.3cm/sMV A Gvyazdqt54.8cm/sE/A ratio0.7 TDI Lateral E' Peak V7.80cm/sMedial E' Peak V5.46cm/sE/Lateral E'5.9 E/Medial E'8.5 Pulmonary Valve PV Peak Pjctjyme72.9cm/sPV Peak Grad.2mmHg Tricuspid Valve TR Peak Oowfohyh732hj/sRAP [id number] Peak Gr.7mmHg [id number] LEFT VENTRICLE The left ventricle is normal size. There is normal left ventricular wall thickness. The systolic function is severely impaired. There is global hypokinesis of the left ventricle. Transmitral Doppler flow pattern is Grade I-abnormal relaxation pattern. No left ventricle thrombus noted on this study. RIGHT VENTRICLE The right ventricle is normal size. There is normal right ventricular wall thickness. The right ventricular systolic function is normal. ATRIA The left atrium size is normal. The right atrium size is normal. AORTIC VALVE The aortic valve is not well visualized. No aortic regurgitation is present. There is no aortic valvular stenosis. MITRAL VALVE The mitral valve is mildly thickened. Mitral regurgitation is trace. TRICUSPID VALVE The tricuspid valve is normal in structure. There is no tricuspid valve regurgitation noted. GREAT VESSELS The aortic root is normal in size. PERICARDIAL EFFUSION There is no pericardial effusion. <Conclusion> The left ventricle is normal size. There is normal left ventricular wall thickness. The systolic function is severely impaired. There is global hypokinesis of the left ventricle. Transmitral Doppler flow pattern is Grade I-abnormal relaxation pattern. No left ventricle thrombus noted on this study.
[2018-01-09 14:48] LABS: ALBUMIN 2.6 g/dL (3.0-4.8)
[2018-01-09] MEDS ORDERED: Magnesium Sulfate 1 gm in D5W 1 GM/100 ML BAG IVPB ONE (14:53)
[2018-01-09 15:03] LABS: CALCIUM 6.5 mg/dL (8.4-10.5)
--- NOTE | 2018-01-09 15:15 | CARD ---
APPROVED REPORT EKG Measurement Heart [id number] <Conclusion> Sinus tachycardia Otherwise normal ECG
--- NOTE | 2018-01-09 15:22 | CARD ---
APPROVED REPORT EKG Measurement Heart [id number] <Conclusion> Atrial fibrillation with a competing junctional pacemaker with premature ventricular or aberrantly conducted complexes Rightward axis Nonspecific ST abnormality, Prolonged QT Abnormal ECG
[2018-01-09] MEDS ORDERED: Cefepime 1gm in NS 100ml 1 GM/100 ML BAG IVPB SCH (15:48)
[2018-01-09 16:23] LABS: ARTERIAL BLOOD GAS HCO3 14.3 mmol/L (21-28); ARTERIAL BLOOD GAS O2 SAT 99.3 % (95-98); ARTERIAL BLOOD GAS PCO2 45 mm/Hg (35-45); ARTERIAL BLOOD GAS TCO2 15.7 mmol.L (22-28)
[2018-01-09 16:32] LABS: ARTERIAL BLOOD GAS PH 7.11 (7.35-7.45)
--- NOTE | 2018-01-09 17:07 | CP.PCM.CON ---
History of Present Illness - History of Present Illness History of Present Illness: 27 yr old woman 28 year old female, with no significant past medical history , presents to the ed brought in by ALS s/p cardiac rest. Patient was found unresponsive. Initial recorded cardiac rhythm was Asystole. ACLS protocol was started Epinephrin and Narcan were administered. ROSC upon arrival. Full HPI limited due to Patient's status. PMH/PSH; not known FH/SHnot known All: not known. On exam: No corneals, no gag, no spontaneous movement no withdrawal to painful stimuli no seizures no tremors. Past Patient History - Infectious Disease Hx of Infectious Diseases: None - Past Social History Smoking Status: Unknown If Ever Smoked - CARDIAC Hx Cardiac Disorders: Yes (s/p cardiac arrest 01/08/18.) - PULMONARY Hx Respiratory Disorders: (Unknown) - NEUROLOGICAL Hx Neurological Disorder: (Unknown) - HEENT Hx HEENT Problems: (Unknown) - RENAL Hx Chronic Kidney Disease: (Unknown) - ENDOCRINE/METABOLIC Hx Endocrine Disorders: (Unknown) - HEMATOLOGICAL/ONCOLOGICAL Hx Blood Disorders: (Unknown) - INTEGUMENTARY Hx Dermatological Problems: (Unknown) - MUSCULOSKELETAL/RHEUMATOLOGICAL Hx Musculoskeletal Disorders: (Unknown) - GASTROINTESTINAL Hx Gastrointestinal Disorders: (Unknown) - GENITOURINARY/GYNECOLOGICAL Hx Genitourinary Disorders: (Unknown) - PSYCHIATRIC Hx Substance Use: Yes - SURGICAL HISTORY Hx Surgeries: (Unknown) Meds Allergies/Adverse Reactions: Allergies Allergy/AdvReac Type Severity Reaction Status Date / Time Unobtainable Allergy Verified 01/08/18 23:36 - Medications Medications: Current Medications Hydrocortisone Sodium Succinate (Solu-Cortef) 50 mg IVP Q6 SASCHA NOREPINEPHRINE BIT/0.9 % NACL (Levophed 4 Mg/ 250 Ml Ns Premixed) 4 mg in 250 mls @ 15 mls/hr IV .[id number] PRN; Protocol; 4 MCG/MIN PRN Reason: TITRATE PER MD ORDER Last Admin: 01/09/18 09:10 Dose: 20 mcg/min, 75 mls/hr Vancomycin HCl (Vancomycin 1gm) 1 gm in 250 mls @ 167 mls/hr IVPB DAILY SASCHA PRN Reason: Protocol Last Admin: 01/09/18 09:37 Dose: 167 mls/hr Sodium Bicarbonate 150 meq/ (Dextrose) 1,150 mls @ 150 mls/hr IV .[id number] SASCHA Last Admin: 01/09/18 10:34 Dose: 150 mls/hr Vasopressin 20 units/ Dextrose 101 mls @ 9.09 mls/hr IV .[id number] SASCHA; 0.03 U/MIN PRN Reason: Protocol Last Admin: 01/09/18 08:53 Dose: 9.09 mls/hr Acetylcysteine 6,323 mg/ (Dextrose) 1,031.615 mls @ 62.5 mls/hr IV .[id number] PRN Reason: Protocol Stop: 01/10/18 07:00 Last Admin: 01/09/18 14:30 Dose: 62.5 mls/hr Pantoprazole Sodium (Protonix 40mg Ivpb) 40 mg in 100 mls @ 20 mls/hr IVPB .Q5H [facility] Last Admin: 01/09/18 13:42 Dose: 20 mls/hr Levetiracetam 1,000 mg/ Sodium (Chloride) 110 mls @ 460 mls/hr IV Q12 [facility] Last Admin: 01/09/18 13:33 Dose: 460 mls/hr Sodium Chloride (Hypertonic Saline 3%) 500 mls @ 30 mls/hr IV .[id number] [facility] Last Admin: 01/09/18 13:24 Dose: 30 mls/hr Dobutamine HCl/Dextrose (Dobutamine/Dextrose 5% 500mg/250ml) 500 mg in 250 mls @ 4.742 mls/hr IV .Q24H PRN; Protocol; 2.5 MCG/KG/MIN PRN Reason: TITRATE PER PROTOCOL Last Admin: 01/09/18 13:15 Dose: 2.5 mcg/kg/min, 4.742 mls/hr Potassium Chloride (Potassium Chloride 20 Meq/100 Ml) 20 meq in 100 mls @ 50 mls/hr IVPB Q2H SASCHA Stop: 01/09/18 18:59 Last Admin: 01/09/18 15:37 Dose: 50 mls/hr Cefepime HCl (Maxipime 1gm) 1 gm in 100 mls @ 100 mls/hr IVPB Q12 [facility] PRN Reason: Protocol Calcium Gluconate 1,000 mg/ (Sodium Chloride) 110 mls @ 110 mls/hr IVPB ONCE ONE Stop: 01/09/18 17:04 Results - Vital Signs Recent Vital Signs: Last Vital Signs Temp 93.4 F L 01/09/18 13:45 Pulse 104 H 01/09/18 13:45 Resp 19 01/09/18 12:27 BP 129/80 01/09/18 13:45 Pulse Ox 99 01/09/18 13:45 - Labs Result Diagrams: 01/09/18 14:28 01/09/18 14:28 Labs: Laboratory Results - last 24 hr 01/09/18 01/09/18 01/09/18 00:00 00:15 00:15 WBC RBC Hgb Hct MCV MCH MCHC RDW Plt Count MPV Gran % Lymph % (Auto) [place] % (Auto) Eos % (Auto) Baso % (Auto) Gran # Lymph # (Auto) [place] # (Auto) Eos # (Auto) Baso # (Auto) pCO2 pO2 HCO3 ABG pH ABG Total CO2 ABG O2 Saturation ABG Base Excess ABG Potassium VBG pH VBG pCO2 VBG HCO3 VBG Total CO2 VBG O2 Sat (Calc) VBG Base Excess VBG Potassium Sodium Chloride Glucose Lactate Mechanical Rate FiO2 Tidal Volume PEEP Potassium Carbon Dioxide Anion Gap BUN Creatinine Est GFR ( Amer) Est GFR (Non-Af Amer) POC Glucose (mg/dL) Random Glucose Uric Acid Calcium Phosphorus 14.5 H Magnesium Total Bilirubin AST ALT Alkaline Phosphatase Total Creatine Kinase 79 Troponin I NT-Pro-B Natriuret Pep 97.3 Total Protein Albumin Globulin Albumin/Globulin Ratio Procalcitonin Arterial Blood Potassium Venous Blood Potassium Urine Color Yellow Urine Appearance Clear Urine pH 6.0 Ur Specific [place] 1.020 Urine Protein Negative Urine Glucose (UA) Negative Urine Ketones Negative Urine Blood Trace-intact H Urine Nitrate Negative Urine Bilirubin Negative Urine Urobilinogen 0.2 Ur Leukocyte Esterase Negative Urine RBC 1 - 3 Urine WBC 0 - 2 Ur Epithelial Cells 1 - 3 Urine Bacteria Few Urine HCG, Qual Negative Salicylates Urine Opiates Screen Positive H Urine Methadone Screen Negative Acetaminophen Ur Barbiturates Screen Negative Ur Phencyclidine Scrn Negative Ur Amphetamines Screen Negative U Benzodiazepines Scrn Negative U Oth Cocaine Metabols Positive H U Cannabinoids Screen Positive H Hepatitis A IgM Ab Hep Bs Antigen Hep B Core IgM Ab Hepatitis C Antibody 01/09/18 01/09/18 01/09/18 00:15 00:15 02:00 WBC RBC Hgb Hct MCV MCH MCHC RDW Plt Count MPV Gran % Lymph % (Auto) [place] % (Auto) Eos % (Auto) Baso % (Auto) Gran # Lymph # (Auto) [place] # (Auto) Eos # (Auto) Baso # (Auto) pCO2 35 pO2 490.0 H HCO3 8.8 L* ABG pH 7.01 L* ABG Total CO2 9.9 L ABG O2 Saturation 100.3 H ABG Base Excess -21.5 L ABG Potassium 6.1 H VBG pH VBG pCO2 VBG HCO3 VBG Total CO2 VBG O2 Sat (Calc) VBG Base Excess VBG Potassium Sodium 137.0 Chloride 111.0 H Glucose 329 H Lactate 9.8 H* Mechanical Rate FiO2 100.0 Tidal Volume PEEP Potassium Carbon Dioxide Anion Gap BUN Creatinine Est GFR ( Amer) Est GFR (Non-Af Amer) POC Glucose (mg/dL) Random Glucose Uric Acid Calcium Phosphorus Magnesium Total Bilirubin AST ALT Alkaline Phosphatase Total Creatine Kinase Troponin I NT-Pro-B Natriuret Pep Total Protein Albumin Globulin Albumin/Globulin Ratio Procalcitonin 0.30 Arterial Blood Potassium 6.1 H Venous Blood Potassium Urine Color Urine Appearance Urine pH Ur Specific [place] Urine Protein Urine Glucose (UA) Urine Ketones Urine Blood Urine Nitrate Urine Bilirubin Urine Urobilinogen Ur Leukocyte Esterase Urine RBC Urine WBC Ur Epithelial Cells Urine Bacteria Urine HCG, Qual Salicylates Urine Opiates Screen Urine Methadone Screen Acetaminophen Ur Barbiturates Screen Ur Phencyclidine Scrn Ur Amphetamines Screen U Benzodiazepines Scrn U Oth Cocaine Metabols U Cannabinoids Screen Hepatitis A IgM Ab Negative Hep Bs Antigen Negative Hep B Core IgM Ab Negative Hepatitis C Antibody Reactive 01/09/18 01/09/18 01/09/18 02:45 02:45 02:45 WBC 17.4 H D RBC 5.00 Hgb 14.4 D Hct 43.5 MCV 87.0 D MCH 28.8 MCHC 33.1 RDW 13.9 Plt Count 280 MPV 10.2 Gran % 70.6 H Lymph % (Auto) 26.2 [place] % (Auto) 2.9 Eos % (Auto) 0.1 L Baso % (Auto) 0.2 Gran # 12.29 H Lymph # (Auto) 4.6 H [place] # (Auto) 0.5 Eos # (Auto) 0.0 Baso # (Auto) 0.03 pCO2 pO2 168 H HCO3 ABG pH ABG Total CO2 ABG O2 Saturation ABG Base Excess ABG Potassium VBG pH 7.16 L* VBG pCO2 43.0 VBG HCO3 15.3 L VBG Total CO2 16.6 L VBG O2 Sat (Calc) 100.3 H VBG Base Excess -13.0 L VBG Potassium 5.3 H Sodium 148 139.0 Chloride 116 H 110.0 H Glucose 82 Lactate 4.3 H* Mechanical Rate FiO2 21.0 Tidal Volume PEEP Potassium 5.5 H Carbon Dioxide 16 L Anion Gap 22 H BUN 18 Creatinine 1.6 H Est GFR ( Amer) 46 Est GFR (Non-Af Amer) 38 POC Glucose (mg/dL) Random Glucose 83 Uric Acid Calcium 7.3 L Phosphorus Magnesium Total Bilirubin 0.4 AST 1923 H ALT 1419 H Alkaline Phosphatase 176 H D Total Creatine Kinase Troponin I 1.24 H* D NT-Pro-B Natriuret Pep Total Protein 7.1 Albumin 3.9 Globulin 3.2 Albumin/Globulin Ratio 1.2 Procalcitonin Arterial Blood Potassium Venous Blood Potassium 5.3 H Urine Color Urine Appearance Urine pH Ur Specific [place] Urine Protein Urine Glucose (UA) Urine Ketones Urine Blood Urine Nitrate Urine Bilirubin Urine Urobilinogen Ur Leukocyte Esterase Urine RBC Urine WBC Ur Epithelial Cells Urine Bacteria Urine HCG, Qual Salicylates Urine Opiates Screen Urine Methadone Screen Acetaminophen Ur Barbiturates Screen Ur Phencyclidine Scrn Ur Amphetamines Screen U Benzodiazepines Scrn U Oth Cocaine Metabols U Cannabinoids Screen Hepatitis A IgM Ab Hep Bs Antigen Hep B Core IgM Ab Hepatitis C Antibody 01/09/18 01/09/18 01/09/18 04:40 06:00 06:06 WBC RBC Hgb Hct MCV MCH MCHC RDW Plt Count MPV Gran % Lymph % (Auto) [place] % (Auto) Eos % (Auto) Baso % (Auto) Gran # Lymph # (Auto) [place] # (Auto) Eos # (Auto) Baso # (Auto) pCO2 pO2 HCO3 ABG pH ABG Total CO2 ABG O2 Saturation ABG Base Excess ABG Potassium VBG pH VBG pCO2 VBG HCO3 VBG Total CO2 VBG O2 Sat (Calc) VBG Base Excess VBG Potassium Sodium Chloride Glucose Lactate Mechanical Rate FiO2 Tidal Volume PEEP Potassium Carbon Dioxide Anion Gap BUN Creatinine Est GFR ( Amer) Est GFR (Non-Af Amer) POC Glucose (mg/dL) 41 L 80 Random Glucose Uric Acid 11.0 H Calcium Phosphorus Magnesium Total Bilirubin AST ALT Alkaline Phosphatase Total Creatine Kinase Troponin I NT-Pro-B Natriuret Pep Total Protein Albumin Globulin Albumin/Globulin Ratio Procalcitonin Arterial Blood Potassium Venous Blood Potassium Urine Color Urine Appearance Urine pH Ur Specific [place] Urine Protein Urine Glucose (UA) Urine Ketones Urine Blood Urine Nitrate Urine Bilirubin Urine Urobilinogen Ur Leukocyte Esterase Urine RBC Urine WBC Ur Epithelial Cells Urine Bacteria Urine HCG, Qual Salicylates Urine Opiates Screen Urine Methadone Screen Acetaminophen Ur Barbiturates Screen Ur Phencyclidine Scrn Ur Amphetamines Screen U Benzodiazepines Scrn U Oth Cocaine Metabols U Cannabinoids Screen Hepatitis A IgM Ab Hep Bs Antigen Hep B Core IgM Ab Hepatitis C Antibody 01/09/18 01/09/18 01/09/18 07:00 08:00 14:28 WBC 17.8 H RBC 5.16 Hgb 14.9 Hct 44.4 MCV 86.0 MCH 28.9 MCHC 33.6 RDW 14.1 Plt Count 174 MPV 9.8 Gran % Lymph % (Auto) [place] % (Auto) Eos % (Auto) Baso % (Auto) Gran # Lymph # (Auto) [place] # (Auto) Eos # (Auto) Baso # (Auto) pCO2 pO2 HCO3 ABG pH ABG Total CO2 ABG O2 Saturation ABG Base Excess ABG Potassium VBG pH VBG pCO2 VBG HCO3 VBG Total CO2 VBG O2 Sat (Calc) VBG Base Excess VBG Potassium Sodium Chloride Glucose Lactate Mechanical Rate FiO2 Tidal Volume PEEP Potassium Carbon Dioxide Anion Gap BUN Creatinine Est GFR ( Amer) Est GFR (Non-Af Amer) POC Glucose (mg/dL) 50 L Random Glucose Uric Acid Calcium Phosphorus Magnesium Total Bilirubin AST ALT Alkaline Phosphatase Total Creatine Kinase Troponin I NT-Pro-B Natriuret Pep Total Protein Albumin Globulin Albumin/Globulin Ratio Procalcitonin Arterial Blood Potassium Venous Blood Potassium Urine Color Urine Appearance Urine pH Ur Specific [place] Urine Protein Urine Glucose (UA) Urine Ketones Urine Blood Urine Nitrate Urine Bilirubin Urine Urobilinogen Ur Leukocyte Esterase Urine RBC Urine WBC Ur Epithelial Cells Urine Bacteria Urine HCG, Qual Salicylates < 1 L Urine Opiates Screen Urine Methadone Screen Acetaminophen < 10.0 L Ur Barbiturates Screen Ur Phencyclidine Scrn Ur Amphetamines Screen U Benzodiazepines Scrn U Oth Cocaine Metabols U Cannabinoids Screen Hepatitis A IgM Ab Hep Bs Antigen Hep B Core IgM Ab Hepatitis C Antibody 01/09/18 01/09/18 14:28 16:15 WBC RBC Hgb Hct MCV MCH MCHC RDW Plt Count MPV Gran % Lymph % (Auto) [place] % (Auto) Eos % (Auto) Baso % (Auto) Gran # Lymph # (Auto) [place] # (Auto) Eos # (Auto) Baso # (Auto) pCO2 45 pO2 113.0 H HCO3 14.3 L ABG pH 7.11 L* ABG Total CO2 15.7 L ABG O2 Saturation 99.3 H ABG Base Excess -14.9 L ABG Potassium 3.4 L VBG pH VBG pCO2 VBG HCO3 VBG Total CO2 VBG O2 Sat (Calc) VBG Base Excess VBG Potassium Sodium 145 139.0 Chloride 111 H 108.0 H Glucose 240 H Lactate 2.8 H Mechanical Rate 16 FiO2 60.0 Tidal Volume 400 PEEP 5 Potassium 3.2 L Carbon Dioxide 17 L Anion Gap 20 BUN 25 H Creatinine 1.7 H Est GFR ( Amer) 43 Est GFR (Non-Af Amer) 36 POC Glucose (mg/dL) Random Glucose 224 H Uric Acid Calcium 6.5 L* Phosphorus 2.5 Magnesium 1.5 L Total Bilirubin 0.3 AST 1423 H ALT 1125 H Alkaline Phosphatase 46 Total Creatine Kinase Troponin I NT-Pro-B Natriuret Pep Total Protein 5.2 L Albumin 2.6 L Globulin 2.6 Albumin/Globulin Ratio 1.0 L Procalcitonin Arterial Blood Potassium 3.4 L Venous Blood Potassium Urine Color Urine Appearance Urine pH Ur Specific [place] Urine Protein Urine Glucose (UA) Urine Ketones Urine Blood Urine Nitrate Urine Bilirubin Urine Urobilinogen Ur Leukocyte Esterase Urine RBC Urine WBC Ur Epithelial Cells Urine Bacteria Urine HCG, Qual Salicylates Urine Opiates Screen Urine Methadone Screen Acetaminophen Ur Barbiturates Screen Ur Phencyclidine Scrn Ur Amphetamines Screen U Benzodiazepines Scrn U Oth Cocaine Metabols U Cannabinoids Screen Hepatitis A IgM Ab Hep Bs Antigen Hep B Core IgM Ab Hepatitis C Antibody
[2018-01-09] MEDS ORDERED: Metoprolol 1 mg/ml Inj IVP ONE (17:12)
[2018-01-09] MEDS ORDERED: EPINEPHrine- 1 MG in Sodium Chloride 0.9% 50 ML IV PRN (18:21)
[2018-01-09 18:23] LABS: HEMOGLOBIN 13.7 g/dL (12.0-16.0); MEAN CELL VOLUME 86.6 fl (80.0-105.0); MEAN CORPUSCULAR HEMOGLOBIN 28.6 pg (25.0-35.0); MEAN PLATELET VOLUME 10.1 fl (7.0-11.0); RBC 4.79 10^6/uL (3.5-6.1); RED CELL DISTRIBUTION WIDTH 14.2 % (11.5-14.5)
[2018-01-09 18:24] LABS: WHITE BLOOD COUNT 28.3 10^3/ul (4.5-11.0)
[2018-01-09 18:42] LABS: PARTIAL THROMBOPLASTIN TIME 46.7 Seconds (25.1-36.5); PROTHROMBIN TIME 41.7 SECONDS (9.4-12.5)
[2018-01-09 19:04] LABS: INR 3.56 (0.93-1.08)
[2018-01-09 19:06] LABS: TROPONIN I 3.62 ng/mL
[2018-01-09 19:20] LABS: CALCIUM 6.3 mg/dL (8.4-10.5)
--- NOTE | 2018-01-09 19:24 | CON ---
DATE: 01/09/2018 HISTORY OF PRESENT ILLNESS: This is a 28-year-old lady without any significant past medical history as far as we know, who was found to be unresponsive and pulseless in [facility] and had ROSC after implementation of ACLS protocol. No more history is available at present time, it is unknown how long ACLS/CPR was conducted and what time passed between cardiac arrest and CPR initiation. No details of HPI, PMH, SH, family history and review of systems are available for the above reason. Of note, the patient was found to have drug screen positive for marijuana, opiates and cocaine. PHYSICAL EXAMINATION: VITAL SIGNS: The patient is currently intubated on PRVC, no spontaneous breathing identified; 400/16/5/60% on that setting, her oxygen saturation 97%, heart rate 106, blood pressure 93/46 (the patient is on norepinephrine 20 mcg per minute, vasopressin 0.03 units as well as stress dose steroids will be started soon), temperature 93, end-tidal CO2 on the monitor 32, respiratory rate 16 (the patient does not overbreath vent), oxygen saturation 97%. ENT: Head and neck atraumatic. LUNGS: Clear to auscultation bilaterally. HEART: Regular rhythm and rate. S1, S2 normal. ABDOMEN: Soft, nontender, nondistended. MUSCULOSKELETAL: No C/C/E. NEUROLOGICAL: The patient is not on any sedation; however, is not observed moving her upper or lower extremities. SKIN: Moist. PSYCHIATRIC: The patient is not on sedation, however, not responding to commands, stimuli including touch painful. LABORATORY DATA: WBC 17.4 down from 36.1, hemoglobin 14.4, platelet count 218. Sodium 148, potassium 5.5, chloride 116, carbon dioxide 16. BUN 18, creatinine 1.6 up from 1.4, glucose 83 (last Accu-Chek was 50 and 2 ampules of D50 were given), calcium 7.3, AST 1923 up from 959, ALT 1419 up from 740 (N-acetylcysteine IV was started), total bilirubin 0.4. Troponin 1.24 up from 0.05. INR 0.97. PTT 65.7. Last VBG performed at 02:45 a.m. showed pH 7.16, lactic acid 4.3 down from 9.8. Urine is negative for hCG. CT head showed loss of colin white matter differentiation with diffuse decreased attenuation of the brain parenchyma. FINDINGS: Supportive of diffuse cerebral edema presumably secondary to the patient reported cardiac arrest. Chest x-ray showed no acute pulmonary disease; however, distended gastric bubble. NG tube was pulled on suction. MEDICATIONS AT HOME: Unavailable. CURRENT MEDICATIONS: Bicarbonate drip, Acetadote, hydrocortisone 50 mg IV every 6 hours, cefepime, norepinephrine, Protonix, bicarbonate drip, vancomycin, vasopressin. Accu-Chek every 2 hours. ASSESSMENT AND PLAN: This is 28-year-old lady who presented after cardiac arrest after opiate overdose complicated by distributive shock with multiorgan system failure including acute kidney injury, shock liver, hypoxemic respiratory failure, encephalopathy, severe lactic acidosis. Neurological: The patient is not sedated; however, does not respond to painful, verbal or touch stimuli. CAT scan of the head revealed substantial swelling and loss of differentiation between liu and white area which suggest severe anoxic brain injury. Neurology is on board (Dr. Govea)-->agreed with 3%NaCl. We will continue with aggressive supportive measures for first 72 hours before putting all facts together to prognosticate. The patient is not a candidate for therapeutic hypothermia. She is severely hemodynamically unstable. EEG is pending. Pulmonary: The patient is on PRVC. No spontaneous breaths observed. We will continue with low tidal volume ventilation/protective lung ventilation, maintaining plateau pressure less than 30 to avoid acute lung injury. Head of bed elevated more than 35 degrees. Oral hygiene. Chest x-ray did not reveal any acute cardiopulmonary disease. NG tube will be put on suction to treat gastric distention. Cardiovascular: The patient is in shock. Initially, had leukocytosis and was hypothermic. No clear-cut source of infection. The patient is too unstable to go outside ICU for CAT scan of the abdomen and pelvis at present time, however will be considered when more stable. Bedside echocardiogram reveal some left ventricular systolic dysfunction, dobutamine was tried however patient became very tachycardic to HR>120 and we had to hold it. IVC on bedside ultrasound was 1.32 without significant respiratory variation most likely due to the fact that the patient is on positive pressure ventilation. Ongoing fluid resuscitation. The patient will be on stress dose steroids, I will add vasopressin. If after that, blood pressure won't improve, I will add epinephrine to the mix. Formal echocardiogram is pending. The patient received 4 liters of normal saline as a bolus. Currently, she is on maintenance bicarbonate drip at 150 mL/hour. ID: The patient is hypothermic and has leukocytosis. She is on cefepime and vancomycin. Blood culture and urine culture were sent. Procalcitonin is pending. ID consult was requested. No clear-cut source of infection and the patient is still unstable to go for CAT scan of the abdomen and pelvis. Renal: The patient has acute kidney injury. We will try to maintain mean arterial pressure more than 65. Avoid nephrotoxins and avoid hyperchloremia. We will try to maintain euvolemia and euglycemia. Correct acidosis, bicarb drip started GI: The patient will be n.p.o., NG tube on intermittent suction. GI prophylaxis. Has some coffee ground NG discharge and melenotic stool--?low flow ischemic colitis? GI consult requested: no invasive intervention at present time, agreed with Protonix drip and N-AC for severe transaminitis. Likely ischemic hepatopathy, but combination of factors including hepatitis and drug related cannot be ruled out. Addendum: Patient became a bit more stable-->CT abdo/pelvis done: no "intra- abdominal catastrophe" or finding suggestive of substantial intra-abdominal infectious process. Addendum: Later in the day, patient became more hemodynamically unstable, requiring re-starting pressors (of note, after earlier resuscitation, patient was weaned off of pressors) and had series of cardiac arrests with intiation of ACLS protocol/CPR each time and ROSC. Had lengthy conversation with patient's family, at one point with Dr. Govea (neurologist) on the speaker phone participating in the conversation. Pt's family had opportunity to ask questions and all questions were answered by me and by Dr. Govea. They requested DNR and no escalation of care. They verbalized understanding of all details regarding their decision ccm time 40 min Eduardo Cardona MD ISAIAH
--- NOTE | 2018-01-09 19:43 | CP.PCM.PRO ---
Pronouncement of Note - Clinical Findings Physical Exam: No Response Verbal/Painful Stimuli, Absent Peripheral Pulses{ Carotid & Femoral}, Absent Heart & Breath Sounds, No Pupillary Light Reflex, No Corneal Reflex, Pupils Fixed & Dilated, Absence of Vital Signs - Pronouncement Time Time of Pronouncement of : 19:33 - Notifications Pronouncement Notifications: Family Notified, Atending Notified Valet Parking Attendant Notified: Yes - Autopsy Autopsy Requested: No - [place] [id number]
[2018-01-09 20:13] LABS: ALBUMIN 2.2 g/dL (3.0-4.8)
[2018-01-09 20:37] VITALS: BP 0/0
[2018-01-09 20:38] VITALS: PULSE 65; RESP 71; TEMP 96.1; O2SAT 46
--- NOTE | 2018-01-09 21:50 | CON ---
DATE: 01/09/2018 LOCATION: Patient is seen in the ICU 129, bed 1. CHIEF COMPLAINT: Patient's respiratory failure, intubated x1 day. HISTORY OF PRESENT ILLNESS: This is a 28-year-old female who was admitted through the emergency room, was seen by Dr. Salamanca in the emergency room. Patient had a cardiac arrest and no significant past medical history and is brought in status post cardiac arrest, was found unresponsive and she is admitted as Coty Baig, and law enforcement officers are also here investigating her identity, it is unclear, no other information is available. She is intubated, on a ventilator, unresponsive, status post cardiac arrest. PAST MEDICAL HISTORY: Unknown. PAST SURGICAL HISTORY: Unknown. ALLERGIES: UNKNOWN. MEDICATIONS: Unknown. SOCIAL HISTORY: She is known to be a drug abuser, heroine and cocaine user. Also, Dr. Rhodes's history and physical examination is reviewed and Dr. Rhodes states that the patient is found with cardiac arrest on the field and unresponsive, in asystole, ACLS protocol was initiated. Patient was intubated in the field, was given three doses of epinephrine, 2 mg of Narcan. PHYSICAL EXAMINATION: GENERAL: Patient is intubated on the ventilator, unresponsive. VITAL SIGNS: Temperature of 92 with blood pressure of 80/50 and respiratory rate on the vent, heart rate of 110. HEENT: Reveals ET tube to be in place. NECK: Supple. LUNGS: Have decreased breath sounds. HEART: Normal S1, S2. ABDOMEN: Soft, nontender. LABORATORY EXAMINATION: Reveals a white count of 36,000, hemoglobin of 12, and platelets of 274. Coagulation, INR is normal and blood gases are reviewed. Chemistries reveal creatinine of 1.4. LFTs are elevated. Potassium is 6.1. Bicarbonate is 16. Glucose is 389. Urinalysis is noted to be 0 to 2 wbc's. HCG is negative. Toxicology shows opiate screen is positive. Cocaine is positive. Cannabinoids are positive. ASSESSMENT AND PLAN: A 28-year-old female with: 1. Respiratory failure, intubated on a ventilator, status post cardiac arrest, unresponsive and with drug overdose. Blood cultures have been ordered. Urine cultures have been ordered and chest x-ray read by Dr. Hebert Tariq earlier yesterday, no active disease; and chest x-ray also read by Dr. Hebert Tariq from today, no active disease with a negative urinalysis, negative abdominal findings. Currently, the patient is on cefepime and vancomycin. Procalcitonin has been ordered. Blood cultures have been ordered. HIV and hepatitis profile has been ordered and patient's identity is not known. Overall, prognosis is grave. Russ Olson MD
--- NOTE | 2018-01-10 11:21 | CP.PCM.DIS ---
<Mary Sylvester - Last Filed: 01/10/18 11:35> Provider - Provider Date of Admission: 01/08/18 23:59 Attending physician: Elaine Thakur MD Primary care physician: Neo Hunter MD Consults: Dr. Cristian Huggins Time Spent in preparation of Discharge (in minutes): 49 Hospital Course - Lab Results Lab Results: Micro Results 01/09/18 00:15 Urine,Mccall Urine Culture - Final No Growth (<1,000 CFU/ML) 01/09/18 00:00 Blood Blood Culture - Preliminary NO GROWTH AFTER 24 HOURS 01/09/18 09:00 Stool C. difficile Antigen & Toxin A,B (M - Final Most Recent Lab Values WBC 28.3 10^3/ul (4.5-11.0) H* D 01/09/18 18:00 RBC 4.79 10^6/uL (3.5-6.1) 01/09/18 18:00 Hgb 13.7 g/dL (12.0-16.0) 01/09/18 18:00 Hct 41.5 % (36.0-48.0) 01/09/18 18:00 MCV 86.6 fl (80.0-105.0) 01/09/18 18:00 MCH 28.6 pg (25.0-35.0) 01/09/18 18:00 MCHC 33.0 g/dl (31.0-37.0) 01/09/18 18:00 RDW 14.2 % (11.5-14.5) 01/09/18 18:00 Plt Count 251 10^3/uL (120.0-450.0) 01/09/18 18:00 MPV 10.1 fl (7.0-11.0) 01/09/18 18:00 Gran % 70.6 % (50.0-68.0) H 01/09/18 02:45 Lymph % (Auto) 26.2 % (22.0-35.0) 01/09/18 02:45 [place] % (Auto) 2.9 % (1.0-6.0) 01/09/18 02:45 Eos % (Auto) 0.1 % (1.5-5.0) L 01/09/18 02:45 Baso % (Auto) 0.2 % (0.0-3.0) 01/09/18 02:45 Gran # 12.29 (1.4-6.5) H 01/09/18 02:45 Lymph # (Auto) 4.6 (1.2-3.4) H 01/09/18 02:45 [place] # (Auto) 0.5 (0.1-0.6) 01/09/18 02:45 Eos # (Auto) 0.0 (0.0-0.7) 01/09/18 02:45 Baso # (Auto) 0.03 K/mm3 (0.0-2.0) 01/09/18 02:45 PT 41.7 SECONDS (9.4-12.5) H 01/09/18 18:00 INR 3.56 (0.93-1.08) H* 01/09/18 18:00 APTT 46.7 Seconds (25.1-36.5) H 01/09/18 18:00 pCO2 45 mm/Hg (35-45) 01/09/18 16:15 pO2 113.0 mm/Hg (80-100) H 01/09/18 16:15 HCO3 14.3 mmol/L (21-28) L 01/09/18 16:15 ABG pH 7.11 (7.35-7.45) L* 01/09/18 16:15 ABG Total CO2 15.7 mmol.L (22-28) L 01/09/18 16:15 ABG O2 Saturation 99.3 % (95-98) H 01/09/18 16:15 ABG Base Excess -14.9 mmol/L (-2.0-3.0) L 01/09/18 16:15 ABG Potassium 3.4 mmol/L (3.6-5.2) L 01/09/18 16:15 VBG pH 7.16 (7.32-7.43) L* 01/09/18 02:45 VBG pCO2 43.0 (40-60) 01/09/18 02:45 VBG HCO3 15.3 mmol/l (21-28) L 01/09/18 02:45 VBG Total CO2 16.6 mmol.L (22-28) L 01/09/18 02:45 VBG O2 Sat (Calc) 100.3 % (40-65) H 01/09/18 02:45 VBG Base Excess -13.0 mmol/L (0.0-2.0) L 01/09/18 02:45 VBG Potassium 5.3 mmol/L (3.6-5.2) H 01/09/18 02:45 Sodium 139.0 mmol/L (132-148) 01/09/18 16:15 Chloride 108.0 mmol/L (98-107) H 01/09/18 16:15 Glucose 240 mg/dl (65-105) H 01/09/18 16:15 Lactate 2.8 mmol/L (0.7-2.1) H 01/09/18 16:15 Mechanical Rate 16 01/09/18 16:15 FiO2 60.0 % 01/09/18 16:15 Tidal Volume 400 01/09/18 16:15 PEEP 5 01/09/18 16:15 Sodium 142 mmol/L (132-148) 01/09/18 18:00 Potassium 4.2 mmol/L (3.6-5.0) 01/09/18 18:00 Chloride 108 mmol/L (98-107) H 01/09/18 18:00 Carbon Dioxide 16 mmol/L (21-33) L 01/09/18 18:00 Anion Gap 22 (10-20) H 01/09/18 18:00 BUN 25 mg/dL (7-21) H 01/09/18 18:00 Creatinine 2.2 mg/dl (0.7-1.2) H 01/09/18 18:00 Est GFR ( Amer) 32 01/09/18 18:00 Est GFR (Non-Af Amer) 27 01/09/18 18:00 POC Glucose (mg/dL) 50 mg/dL (65-110) L 01/09/18 08:00 Random Glucose 274 mg/dL (70-110) H 01/09/18 18:00 Uric Acid 11.0 mg/dL (2.5-6.2) H 01/09/18 06:00 Calcium 6.3 mg/dL (8.4-10.5) L* 01/09/18 18:00 Phosphorus 2.5 mg/dL (2.5-4.5) 01/09/18 14:28 Magnesium 2.1 mg/dL (1.7-2.2) 01/09/18 18:00 Total Bilirubin 0.3 mg/dL (0.2-1.3) 01/09/18 18:00 AST 1181 U/L (14-36) H 01/09/18 18:00 ALT 939 U/L (7-56) H 01/09/18 18:00 Alkaline Phosphatase 70 U/L (38-126) 01/09/18 18:00 Lactate Dehydrogenase 6378 U/L (333-699) H 01/09/18 18:00 Total Creatine Kinase 36848 U/L (35-230) H 01/09/18 18:00 CK-MB (CK-2) 127.0 ng/mL (0.0-3.6) H 01/09/18 18:00 CK-MB (CK-2) % 1.0 % (2.5-3.0) L 01/09/18 18:00 Troponin I 3.62 ng/mL H* D 01/09/18 18:00 NT-Pro-B Natriuret Pep 97.3 pg/mL (0-450) 01/09/18 00:00 Total Protein 4.6 g/dL (5.8-8.3) L 01/09/18 18:00 Albumin 2.2 g/dL (3.0-4.8) L 01/09/18 18:00 Globulin 2.3 gm/dL 01/09/18 18:00 Albumin/Globulin Ratio 1.0 (1.1-1.8) L 01/09/18 18:00 Procalcitonin 0.30 NG/ML (0.19-0.49) 01/09/18 00:15 Arterial Blood Potassium 3.4 mmol/L (3.6-5.2) L 01/09/18 16:15 Venous Blood Potassium 5.3 mmol/L (3.6-5.2) H 01/09/18 02:45 Urine Color Yellow (YELLOW) 01/09/18 00:15 Urine Appearance Clear (CLEAR) 01/09/18 00:15 Urine pH 6.0 (4.7-8.0) 01/09/18 00:15 Ur Specific [place] 1.020 (1.005-1.035) 01/09/18 00:15 Urine Protein Negative mg/dL (<30 mg/dL) 01/09/18 00:15 Urine Glucose (UA) Negative mg/dL (NEGATIVE) 01/09/18 00:15 Urine Ketones Negative mg/dL (NEGATIVE) 01/09/18 00:15 Urine Blood Trace-intact (NEGATIVE) H 01/09/18 00:15 Urine Nitrate Negative (NEGATIVE) 01/09/18 00:15 Urine Bilirubin Negative (NEGATIVE) 01/09/18 00:15 Urine Urobilinogen 0.2 E.U./dL (<1 E.U./dL) 01/09/18 00:15 Ur Leukocyte Esterase Negative [place]/uL (NEGATIVE) 01/09/18 00:15 Urine RBC 1 - 3 /hpf (0-2) 01/09/18 00:15 Urine WBC 0 - 2 /hpf (0-6) 01/09/18 00:15 Ur Epithelial Cells 1 - 3 /hpf (0-5) 01/09/18 00:15 Urine Bacteria Few (NEG) 01/09/18 00:15 Urine HCG, Qual Negative (NEGATIVE) 01/09/18 00:15 Salicylates < 1 mg/dL (2.0-20.0) L 01/09/18 07:00 Urine Opiates Screen Positive (NEGATIVE) H 01/09/18 00:15 Urine Methadone Screen Negative (NEGATIVE) 01/09/18 00:15 Acetaminophen < 10.0 ug/ml (10.0-20.0) L 01/09/18 07:00 Ur Barbiturates Screen Negative (NEGATIVE) 01/09/18 00:15 Ur Phencyclidine Scrn Negative (NEGATIVE) 01/09/18 00:15 Ur Amphetamines Screen Negative (NEGATIVE) 01/09/18 00:15 U Benzodiazepines Scrn Negative (NEGATIVE) 01/09/18 00:15 U Oth Cocaine Metabols Positive (NEGATIVE) H 01/09/18 00:15 U Cannabinoids Screen Positive (NEGATIVE) H 01/09/18 00:15 Alcohol, Quantitative < 10 mg/dL (0-10) 01/08/18 23:55 Hepatitis A IgM Ab Negative (NEGATIVE) 01/09/18 02:00 Hep Bs Antigen Negative (NEGATIVE) 01/09/18 02:00 Hep B Core IgM Ab Negative (NEGATIVE) 01/09/18 02:00 Hepatitis C Antibody Reactive (NEGATIVE) 01/09/18 02:00 Blood Type A POSITIVE 01/09/18 18:00 Blood Type Confirm A POSITIVE 01/09/18 18:43 Antibody Screen Negative 01/09/18 18:00 BBK History Checked No verified bt 01/09/18 18:00 - Hospital Course Hospital Course: The patient is a 28 year old woman with unknown past medical history who was found at home to be unresponsive and in asystole by EMS. After ACLS protocol with chest compressions and Epinephrine as well as Narcan, she regained pulses in the field. However, since Return Of Spontaneous Circulation, shes remained unresponsive and therefore was started on hypothermia protocol overnight. Patient's lab indicated multi-organ dysfunction. CT of the head showed Loss of colin-white matter differentiation with diffuse decreased attenuation of the brain parenchyma. Findings supportive of diffuse cerebral edema presumably secondary to the patient's reported cardiac arrest. Patient had absent pupillary response to light. Remain ventilated, on vasopressors, stress-dose steroids, bicarbonate drip in the ICU and in the evening on 01/09/18 after multiple efforts of CPR failed to revive a pulse. Family was notified. pronouncement note reads as No Response Verbal/Painful Stimuli, Absent Peripheral Pulses{Carotid & Femoral}, Absent Heart & Breath Sounds, No Pupillary Light Reflex, No Corneal Reflex, Pupils Fixed & Dilated, Absence of Vital Signs. - Date & Time of H&P Date of H&P: 01/09/18 Time of H&P: 20:00 Discharge Exam - Head Exam Head Exam: ATRAUMATIC, NORMOCEPHALIC Discharge Plan - Follow Up Plan Condition: CRITICAL Disposition: WITH WITHOUT AUTOPSY Referrals: Neo Hunter MD [Primary Care Provider] - <Elanie Thakur - Last Filed: 01/10/18 11:41> Provider - Provider Date of Admission: 01/08/18 23:59 Attending physician: Elaine Thakur MD Primary care physician: Neo Hunter MD Hospital Course - Lab Results Lab Results: Micro Results 01/09/18 00:15 Urine,Mccall Urine Culture - Final No Growth (<1,000 CFU/ML) 01/09/18 00:00 Blood Blood Culture - Preliminary NO GROWTH AFTER 24 HOURS 01/09/18 09:00 Stool C. difficile Antigen & Toxin A,B (M - Final Most Recent Lab Values WBC 28.3 10^3/ul (4.5-11.0) H* D 01/09/18 18:00 RBC 4.79 10^6/uL (3.5-6.1) 01/09/18 18:00 Hgb 13.7 g/dL (12.0-16.0) 01/09/18 18:00 Hct 41.5 % (36.0-48.0) 01/09/18 18:00 MCV 86.6 fl (80.0-105.0) 01/09/18 18:00 MCH 28.6 pg (25.0-35.0) 01/09/18 18:00 MCHC 33.0 g/dl (31.0-37.0) 01/09/18 18:00 RDW 14.2 % (11.5-14.5) 01/09/18 18:00 Plt Count 251 10^3/uL (120.0-450.0) 01/09/18 18:00 MPV 10.1 fl (7.0-11.0) 01/09/18 18:00 Gran % 70.6 % (50.0-68.0) H 01/09/18 02:45 Lymph % (Auto) 26.2 % (22.0-35.0) 01/09/18 02:45 [place] % (Auto) 2.9 % (1.0-6.0) 01/09/18 02:45 Eos % (Auto) 0.1 % (1.5-5.0) L 01/09/18 02:45 Baso % (Auto) 0.2 % (0.0-3.0) 01/09/18 02:45 Gran # 12.29 (1.4-6.5) H 01/09/18 02:45 Lymph # (Auto) 4.6 (1.2-3.4) H 01/09/18 02:45 [place] # (Auto) 0.5 (0.1-0.6) 01/09/18 02:45 Eos # (Auto) 0.0 (0.0-0.7) 01/09/18 02:45 Baso # (Auto) 0.03 K/mm3 (0.0-2.0) 01/09/18 02:45 PT 41.7 SECONDS (9.4-12.5) H 01/09/18 18:00 INR 3.56 (0.93-1.08) H* 01/09/18 18:00 APTT 46.7 Seconds (25.1-36.5) H 01/09/18 18:00 pCO2 45 mm/Hg (35-45) 01/09/18 16:15 pO2 113.0 mm/Hg (80-100) H 01/09/18 16:15 HCO3 14.3 mmol/L (21-28) L 01/09/18 16:15 ABG pH 7.11 (7.35-7.45) L* 01/09/18 16:15 ABG Total CO2 15.7 mmol.L (22-28) L 01/09/18 16:15 ABG O2 Saturation 99.3 % (95-98) H 01/09/18 16:15 ABG Base Excess -14.9 mmol/L (-2.0-3.0) L 01/09/18 16:15 ABG Potassium 3.4 mmol/L (3.6-5.2) L 01/09/18 16:15 VBG pH 7.16 (7.32-7.43) L* 01/09/18 02:45 VBG pCO2 43.0 (40-60) 01/09/18 02:45 VBG HCO3 15.3 mmol/l (21-28) L 01/09/18 02:45 VBG Total CO2 16.6 mmol.L (22-28) L 01/09/18 02:45 VBG O2 Sat (Calc) 100.3 % (40-65) H 01/09/18 02:45 VBG Base Excess -13.0 mmol/L (0.0-2.0) L 01/09/18 02:45 VBG Potassium 5.3 mmol/L (3.6-5.2) H 01/09/18 02:45 Sodium 139.0 mmol/L (132-148) 01/09/18 16:15 Chloride 108.0 mmol/L (98-107) H 01/09/18 16:15 Glucose 240 mg/dl (65-105) H 01/09/18 16:15 Lactate 2.8 mmol/L (0.7-2.1) H 01/09/18 16:15 Mechanical Rate 16 01/09/18 16:15 FiO2 60.0 % 01/09/18 16:15 Tidal Volume 400 01/09/18 16:15 PEEP 5 01/09/18 16:15 Sodium 142 mmol/L (132-148) 01/09/18 18:00 Potassium 4.2 mmol/L (3.6-5.0) 01/09/18 18:00 Chloride 108 mmol/L (98-107) H 01/09/18 18:00 Carbon Dioxide 16 mmol/L (21-33) L 01/09/18 18:00 Anion Gap 22 (10-20) H 01/09/18 18:00 BUN 25 mg/dL (7-21) H 01/09/18 18:00 Creatinine 2.2 mg/dl (0.7-1.2) H 01/09/18 18:00 Est GFR ( Amer) 32 01/09/18 18:00 Est GFR (Non-Af Amer) 27 01/09/18 18:00 POC Glucose (mg/dL) 50 mg/dL (65-110) L 01/09/18 08:00 Random Glucose 274 mg/dL (70-110) H 01/09/18 18:00 Uric Acid 11.0 mg/dL (2.5-6.2) H 01/09/18 06:00 Calcium 6.3 mg/dL (8.4-10.5) L* 01/09/18 18:00 Phosphorus 2.5 mg/dL (2.5-4.5) 01/09/18 14:28 Magnesium 2.1 mg/dL (1.7-2.2) 01/09/18 18:00 Total Bilirubin 0.3 mg/dL (0.2-1.3) 01/09/18 18:00 AST 1181 U/L (14-36) H 01/09/18 18:00 ALT 939 U/L (7-56) H 01/09/18 18:00 Alkaline Phosphatase 70 U/L (38-126) 01/09/18 18:00 Lactate Dehydrogenase 6378 U/L (333-699) H 01/09/18 18:00 Total Creatine Kinase 36102 U/L (35-230) H 01/09/18 18:00 CK-MB (CK-2) 127.0 ng/mL (0.0-3.6) H 01/09/18 18:00 CK-MB (CK-2) % 1.0 % (2.5-3.0) L 01/09/18 18:00 Troponin I 3.62 ng/mL H* D 01/09/18 18:00 NT-Pro-B Natriuret Pep 97.3 pg/mL (0-450) 01/09/18 00:00 Total Protein 4.6 g/dL (5.8-8.3) L 01/09/18 18:00 Albumin 2.2 g/dL (3.0-4.8) L 01/09/18 18:00 Globulin 2.3 gm/dL 01/09/18 18:00 Albumin/Globulin Ratio 1.0 (1.1-1.8) L 01/09/18 18:00 Procalcitonin 0.30 NG/ML (0.19-0.49) 01/09/18 00:15 Arterial Blood Potassium 3.4 mmol/L (3.6-5.2) L 01/09/18 16:15 Venous Blood Potassium 5.3 mmol/L (3.6-5.2) H 01/09/18 02:45 Urine Color Yellow (YELLOW) 01/09/18 00:15 Urine Appearance Clear (CLEAR) 01/09/18 00:15 Urine pH 6.0 (4.7-8.0) 01/09/18 00:15 Ur Specific [place] 1.020 (1.005-1.035) 01/09/18 00:15 Urine Protein Negative mg/dL (<30 mg/dL) 01/09/18 00:15 Urine Glucose (UA) Negative mg/dL (NEGATIVE) 01/09/18 00:15 Urine Ketones Negative mg/dL (NEGATIVE) 01/09/18 00:15 Urine Blood Trace-intact (NEGATIVE) H 01/09/18 00:15 Urine Nitrate Negative (NEGATIVE) 05/19/18 00:15 Urine Bilirubin Negative (NEGATIVE) 01/09/18 00:15 Urine Urobilinogen 0.2 E.U./dL (<1 E.U./dL) 01/09/18 00:15 Ur Leukocyte Esterase Negative [place]/uL (NEGATIVE) 01/09/18 00:15 Urine RBC 1 - 3 /hpf (0-2) 01/09/18 00:15 Urine WBC 0 - 2 /hpf (0-6) 01/09/18 00:15 Ur Epithelial Cells 1 - 3 /hpf (0-5) 01/09/18 00:15 Urine Bacteria Few (NEG) 01/09/18 00:15 Urine HCG, Qual Negative (NEGATIVE) 01/09/18 00:15 Salicylates < 1 mg/dL (2.0-20.0) L 01/09/18 07:00 Urine Opiates Screen Positive (NEGATIVE) H 01/09/18 00:15 Urine Methadone Screen Negative (NEGATIVE) 01/09/18 00:15 Acetaminophen < 10.0 ug/ml (10.0-20.0) L 01/09/18 07:00 Ur Barbiturates Screen Negative (NEGATIVE) 01/09/18 00:15 Ur Phencyclidine Scrn Negative (NEGATIVE) 01/09/18 00:15 Ur Amphetamines Screen Negative (NEGATIVE) 01/09/18 00:15 U Benzodiazepines Scrn Negative (NEGATIVE) 01/09/18 00:15 U Oth Cocaine Metabols Positive (NEGATIVE) H 01/09/18 00:15 U Cannabinoids Screen Positive (NEGATIVE) H 01/09/18 00:15 Alcohol, Quantitative < 10 mg/dL (0-10) 01/08/18 23:55 Hepatitis A IgM Ab Negative (NEGATIVE) 01/09/18 02:00 Hep Bs Antigen Negative (NEGATIVE) 01/09/18 02:00 Hep B Core IgM Ab Negative (NEGATIVE) 01/09/18 02:00 Hepatitis C Antibody Reactive (NEGATIVE) 01/09/18 02:00 Blood Type A POSITIVE 01/09/18 18:00 Blood Type Confirm A POSITIVE 01/09/18 18:43 Antibody Screen Negative 01/09/18 18:00 BBK History Checked No verified bt 01/09/18 18:00 Attending/Attestation - Attestation I have personally seen and examined this patient.: Yes I have fully participated in the care of the patient.: Yes I have reviewed all pertinent clinical information, including history, physical exam and plan: Yes Notes (Text): 01/10/18 11:38 28 yo female was admitted to hospitl after cardiac arrest likely due to drug overdose, developed severe anoxic brain injury and multiple organ failure from hypotension,patient was coded multiple times in the ICU and was pronounced after prolong CPR at 19.33.Patient family was at bed side. 01/10/18 11:40
--- NOTE | 2018-01-10 13:10 | CARD ---
APPROVED REPORT EKG Measurement Heart [id number] <Conclusion> Normal sinus rhythm Nonspecific ST and T wave abnormality Prolonged QT Abnormal ECG
--- NOTE | 2018-01-11 08:16 | CON ---
DATE: 01/09/2018 NEPHROLOGY CONSULTATION HISTORY OF PRESENT ILLNESS: The patient is a 27-year-old female with unknown past medical history, presented status post cardiac arrest. Nephrology being consulted for acute renal failure. History taken from medical record and staff as the patient is unresponsive. The patient reportedly had been found in the backway truck by EMS unresponsive; was noted to be in asystole and ACLS protocol was initiated; the patient was given three doses of epi and 2 mg of Narcan in the field with return of spontaneous circulation being achieved. The patient has been hypotensive while here requiring two vasopressors, vasopressin and Levophed; also noted to have three episodes of diarrhea since presentation overnight; hypothermia protocol was initially started, however, discontinued this morning due to concern for sepsis and hemodynamic instability. PAST MEDICAL HISTORY: Unknown. SOCIAL HISTORY: Unknown. FAMILY HISTORY: Unknown. REVIEW OF SYSTEMS: Unable to be obtained as the patient is unresponsive. PHYSICAL EXAMINATION: VITAL SIGNS: Most recently blood pressure 129/80, heart rate 104, temperature 93.4 degrees Fahrenheit, O2 sat 99% on 60% FiO2 via mechanical ventilation. GENERAL: No distress. HEENT: Moist mucous membranes. Nonicteric. No cervical lymphadenopathy. RESPIRATORY: Lungs clear to auscultation bilaterally. No rales or rhonchi. No wheezes. CARDIOVASCULAR: Heart sounds S1 and S2 normal. No murmurs or gallops. No rubs. GASTROINTESTINAL: Abdomen soft, nontender, nondistended. GENITOURINARY: No bladder distention. EXTREMITIES: No edema. SKIN: Warm. No cyanosis. NEUROLOGIC: The patient unresponsive to noxious stimuli with dilated pupils, unresponsive. LABORATORY DATA: Most recently, CBC: WBC 17.8, hemoglobin 14.9, hematocrit 44.4, platelets 174. Chemistry panel: Sodium 145, potassium 3.2, chloride 111, bicarb 17, BUN 25, creatinine 1.7, glucose 224, phosphorus 2.5, magnesium 1.5. AST 1423, ALT 1125, uric acid 11. Urine toxicology positive for opiates, cocaine, and cannabinoids. Chest x-ray, directly observed, no pulmonary vascular congestion. Lungs clear. ASSESSMENT AND PLAN: 1. Acute renal failure, anuric renal failure in the setting of likely prolonged cardiac arrest (unknown duration of arrest); stable volume status; electrolytes being corrected with medical management; hyperkalemia, treated with Kayexalate and lactic acidosis improving, currently on bicarb drip with pH improved; no urgent indication to initiate hemodialysis at this time; given current neurologic findings if the patient is deemed brain-, then dialysis would be a futile undertaking; we will continue to monitor daily; if the need for dialysis arises prior to being able to deem the patient brain-, we will consider dialysis at that time. 2. Status post cardiac arrest. The patient with signs of anoxic brain injury with cerebral edema on CT; the patient being started on mannitol, which can potentially be nephrotoxic at high doses; however, given primary concern is salvaging neurologic function, should pursue whatever means are necessary in this regard. 3. Hypocalcemia, likely worsened by being on bicarb drip; will give IV calcium gluconate, especially now that hyperphosphatemia has corrected. 4. Hyperphosphatemia, transiently seen; likely induced by severe lactic acidosis, also potentiated by diarrhea. 5. Systemic inflammatory response syndrome/sepsis. The patient was given a dose of IV vancomycin, currently on cefepime 1 g every 8 hours, should decrease frequency of cefepime to every 24 hours for creatinine clearance less than 10; should check vancomycin level before re-dosing. Thank you for this referral. We will be following up closely. Nabeel Huggins MD
--- NOTE | 2018-01-11 08:23 | CON ---
DATE: 01/08/2018 HISTORY OF PRESENT ILLNESS: This 27-year-old patient was brought to the emergency room after being found unresponsive at the back of a truck. Further, the patient was found to be asystole, has ACL protocol, was initiated in the field. was achieved and the patient was brought into the [facility] (Former[facility]) for further evaluation. The patient was reported to have overdose heroin. The patient was in hypertensive. The patient was found to have an elevated LFTs. GI consult was requested to evaluate this. The patient was having an NG tube, was noticed to have coffee-ground vomitus and also noticed some blood per rectum. The patient's family was at bedside at the time of the examination. The patient was seen on 01/09/2018. The case was discussed with Dr. Cardona, Floor Supervisor and also the resident. PAST MEDICAL HISTORY: Otherwise, unknown. PAST SURGICAL HISTORY: Unknown. SOCIAL HISTORY: Report history of heroin use. PHYSICAL EXAMINATION: GENERAL: The patient was on vent, intubated, has an NG tube in place, has coffee-ground mild material noticed. HEART: S1, S2 heard. LUNGS: Bilateral air entry present. ABDOMEN: Soft. Bowel sounds are present. EXTREMITIES: No cyanosis. No clubbing. NEUROLOGIC: Not responsive, on vent. LABORATORY DATA: The patient's WBC count 17.8, it was 36.1 when the patient came in. Hemoglobin 14.9, hematocrit 44.4, platelets 174. LFTs shows AST 1423 and ALT 1125. Calcium 6.5. Potassium 3.2, BUN 25, creatinine 1.7. The patient had a CT scan of the abdomen and pelvis done was reviewed, which showed plate atelectasis with pleural effusion. Liver grossly unremarkable. IMPRESSION: This is a 28-year-old patient, status post cardiac arrest, probably secondary to the drug overdose. The patient is on vent with multisystem organ failure, shock liver and the patient does have gastrointestinal bleeding, has coffee-ground vomitus in the nasogastric tube. RECOMMENDATIONS: The most likely cause of the GI bleeding secondary to the . I would recommend now aggressive supportive management with maintenance of the hemodynamic status with close followup of the hemoglobin and hematocrit and followup of the LFTs and INR. Also, requested baseline ultrasound scan and also hepatitis profile. Overall prognosis of the patient remains poor. Discussed again in detail with the Floor Supervisor. We will continue to closely follow up her care and suggest further management based on the clinical course. Rizwan Shepard MD
== END 2018-01-09 19:16 | DRG 582 ==
LOC: ED 23:26 → EDBD 23:59 → ERH 23:59 → CCU 01-09 01:09
PROVIDERS: ADMIT Internal Medicine; ATTEND Internal Medicine
PROC: 5A12012 Performance of Cardiac Output, Single, Manual (ICD-10-PCS; 2018-01-08)
PROC: 5A1935Z Respiratory Ventilation, Less than 24 Consecutive Hours (ICD-10-PCS; principal; 2018-01-09)
PROC: 06HY33Z Insertion of Infusion Device into Lower Vein, Percutaneous Approach (ICD-10-PCS; 2018-01-09)
PROC: B54BZZA Ultrasonography of Right Lower Extremity Veins, Guidance (ICD-10-PCS; 2018-01-09)
DX: T40.1X1A Poisoning by heroin, accidental (unintentional), initial encounter (principal); A41.9 Sepsis, unspecified organism; R65.21 Severe sepsis with septic shock; K72.00 Acute and subacute hepatic failure without coma; J96.91 Respiratory failure, unspecified with hypoxia; N17.0 Acute kidney failure with tubular necrosis; G93.1 Anoxic brain damage, not elsewhere classified; R57.0 Cardiogenic shock; E87.2 Acidosis; E87.5 Hyperkalemia; K92.2 Gastrointestinal hemorrhage, unspecified; I46.9 Cardiac arrest, cause unspecified; G93.6 Cerebral edema; E83.51 Hypocalcemia; E83.39 Other disorders of phosphorus metabolism; Z66 Do not resuscitate